=== PATIENT | female | born 1965 | race African-American/Black ===

== ENCOUNTER 2024-06-24 13:36 | Outpatient (AMB) | payer OTHER, SELFPAY ==
--- NOTE | 2024-06-24 13:41 | MHC.OFFVIS ---
Vital Signs 06/24/24 13:53 Height 5 ft Weight 217 lb 8 oz BMI 42.5 BP 122/80 Blood Pressure Location Rt brachial Position Sitting Pulse 67 Pulse Source Pulse Oximeter Pulse Oximetry (%) 97 Oxygen Delivery Method Room Air Intake Visit Reasons: migraine, pseudotumor cerebri Intake Note: Patient presents for a new patient evaluation for migraine headaches and pseudotumor cerebri Furniture Technician Required: No Accompanied by: Self / Same As Patient Allergies Penicillins Allergy (Intermediate, Verified 06/24/24 13:45) Hives Medication List - Last Reconciled 06/24/24 by LUCY Leiva acetaminophen 1,000 mg PO TID acetazolamide ER 2,000 mg PO BID acyclovir 400 mg PO BID PRN albuterol sulfate 90 mcg/actuation (Ventolin HFA) inhalation albuterol sulfate mg inhalation TID aluminum hydrox-magnesium carb 95-358 mg/15 mL (Acid Gone Antacid) mL PO PRN aspirin 81 mg PO DAILY [id number]-[id number]-wwgp 50-325-40 mg tabs PO celecoxib 100 mg PO BID cholecalciferol (vitamin D3) (Vitamin D3) 50 mcg PO DAILY clonidine HCl 0.3 mg PO DAILY clotrimazole-betamethasone 1-0.05 % appl topical DAILY furosemide 40 mg PO DAILY gabapentin mg PO BID hydrochlorothiazide 12.5 mg PO DAILY hydroxyzine HCl 50 mg PO BEDTIME PRN isosorbide mononitrate ER 30 mg PO DAILY lisinopril 40 mg PO DAILY magnesium oxide 250 mg PO DAILY mometasone 100 mcg/actuation 2 puffs inhalation BID morphine 15 mg PO BID PRN multivitamin 1 tab PO DAILY ondansetron HCl 4 mg PO Q8H PRN pantoprazole 40 mg PO BID potassium chloride ER (Klor-Con M) mEq PO TID simvastatin 10 mg PO BEDTIME tizanidine 4 mg PO BID topiramate 200 mg PO BID tramadol 50 mg PO TID PRN vitamin A 1 cap PO DAILY HPI Comments Details: Right-handed 58-yr-old female presents for new pt evaluation of headache disorder for transfer of care. Pt reports she has had severe headaches as a teenager/young adult. She was eventually evaluated by Dr Conner and was dx'd w/ IIH and migraine. Had LP x's 2- does not recall what OP was. Her weight was above 300lbs at time of Dx. She does not recall when her last brain imaging was- states was done for ? of pituitary cyst d/t h/o galactorhea.. Her last eye exam was within the year- exam WNL- at [facility]. She was previously f/b Dr Conner at [facility]- transferred as he was in [place], and then Dr Ca- transferred upon his fdc. PMH and ROS are notable for:? General: occasionally sees floaters Musculoskeletal disorders or injury: arthritis, neck, and back pain. States a cyst was recently found in lumbar spine MRI (at [facility]) by physiatry- [facility].- awaiting tx for this. Mood d/o: Depression- mood is now stable. No current therapist. Respiratory d/o: Asthma CV disease: HTN, HLD- on statin GI d/o: GERD, more prone to loose stools. P[employer]DER: post-hysterectomy. galactorhea- ? pituitary cyst. Family history of migraine or other headache disorder: maybe her sister Pertinent denials include: History of concussion/head injury, Clotting or hematology d/o, Endocrine d/o, metabolic d/o, History of seizure, syncope, or drop attacks Lifestyle considerations: Sleep routine: Usual bedtime: 2am and wake-up time: 4am and then goes back to sleep Sleep difficulties: Endorses: ARPITA- dx'd prior to gastric bypass in 2002 sx, then gained wt- but is agn losing wt follwoing a surgical intervention,Snoring, Excessive daytime sleepiness, Fatigue, Bruxism- does not use a mouthguard- s a dentists next week. Caffeine use: 1 cup of coffee per day occasionally. Substance use: none Exercise:?she is working on it, trying to walk more Employment:?On disability. Headache questionnaire:? Typical headache characteristics: Prodrome symptoms: unknown Aura: sees lights during the headache. Pain intensity: severe Location, quality, characteristics: Varies, can be throbbing/pressure/stabbing pain in the back of head or can be one sided or bilateral, or retro-orbital. More recently stabbing pain above right eye. Associated symptoms: yawning, mild photophobia, phonophobia, mild nolan whooshing tinnitus- better now, osmophobia, allodynia, nausea, sometimes lightheadedness, fatigue, mild cognitive difficulties, activity intolerance if severe. Postdrome: none Triggers: certain smells, sounds. Denies positional headache. Time of day: No specific time of day Duration and Frequency: How does headache impact your life? Varies- can be 4 headache per week, lasting hours- up to 6-7 hours. Current acute medication use/interventions: Fioricet- per pharmacy receives 100 tabs q 25 days. Current preventative medication use: Diamox ER 2000mg bid and Topiramate 200mg bid Non-pharmacological interventions: rest if needed. [facility] Medical History (Updated 06/24/24 @ 21:51 by LUCY Leiva) HTN (hypertension), benign Gastroesophageal reflux disease without esophagitis Migraine Pseudotumor cerebri Hypokalemia Major depression in remission Fibromyalgia History of substance abuse ARPITA (obstructive sleep apnea) Vitamin D deficiency Asthma Pituitary microadenoma with hyperprolactinemia Galactorrhea in female Right shoulder tendinitis Bilateral primary osteoarthritis of knee HSV (herpes simplex virus) anogenital infection Hiatal hernia with gastroesophageal reflux Class 3 severe obesity with body mass index (BMI) of 50.0 to 59.9 in adult Insomnia Chronic midline low back pain without sciatica Renal cyst Venous insufficiency Surgical History H/O endoscopy H/O section Hx laparoscopic cholecystectomy History of hysterectomy H/O hernia repair H/O colonoscopy History of carpal tunnel release Gastric bypass status for obesity History of bariatric surgery Family History Father Diabetes Hypertension CAD (coronary artery disease) Mother Hypertension Diabetes Sister Hypertension Social History (Updated 06/24/24 @ 13:53 by Renea Stanton MA) Alcohol intake: never Patient Tobacco Use Status: Never used Tobacco Review of Systems ENT Reports Normal hearing present Neuro Reports Normal hearing present Physical Exam Vital Signs: Last Vital Signs Pulse 67 06/24/24 13:53 BP 122/80 06/24/24 13:53 Pulse Ox 97 06/24/24 13:53 Oxygen Delivery Method Room Air 06/24/24 13:53 BMI result Body Mass Index 42.5 Const Orientation/consciousness: patient oriented x3 Eyes Pupils: Equal, round and reactive pupils present Resp Effort & Inspection: normal respiratory effort and able to speak in complete sentences Neuro Other: No palpable scalp tenderness. EOM overall intact w/o nystagmus- left eye deviates laterally on convergence Mild facial asymmetry, right cheek and cheek puff larger than left Mallampati grade IV Bilateral posterior cervical tightness. Cervical ROM: slightly limited Left Spurling: normal Right Spurling: normal. Poor tandem walk. BUE MS 5/5 BLE MS 5-/5 General: patient oriented x3 Cranial nerves: Yes Equal, round and reactive pupils present, Yes Nystagmus not present, Yes Midline tongue present, Yes Symmetric palate elevation present, Yes Normal hearing present, Yes Ability to bilaterally rotate head present and Yes Ability to bilaterally elevate shoulders present Cognition (Neuro): normal cognition Gait exam (Neuro): Normal gait present Deep tendon reflexes (DTR's): Right triceps reflex intensity grade: 2+, Left triceps reflex intensity grade: 2+, Rt Biceps (C5, C6): 2+, Left biceps reflex intensity grade: 2+, Right brachioradialis reflex intensity grade: 2+, Left brachioradialis reflex intensity grade: 2+, Right patellar reflex intensity grade: 2+ and Left patellar reflex intensity grade: 2+ Coordination: [id number] test normal and Romberg test negative Pupils: Normal pupillary reactivity/response: bilateral Psych Appearance: grossly normal Mental Status: mental status grossly normal Speech and movement: Normal speech and movement present Affect: normal affect Attitude: cooperative Thought process: Normal thought process present Results Reviewed Results Reviewed: Exam Date:?05/27/2024 PROCEDURE: MR SPINE LUMBAR without CONTRAST INDICATION: Vertebrogenic low back pain. Patient presents with low back pain with left leg pain, weakness and numbness/tingling. TECHNIQUE: Unenhanced multiplanar, multisequence MR imaging of the lumbar spine. COMPARISON: None Available. FINDINGS: Normal alignment of lumbar vertebral bodies. The vertebral bodies are of normal height. Mixed fatty marrow signal intensity. Intervertebral disc spaces are maintained. Lumbar facet arthrosis. Question periaortic adenopathy. Conus and cauda equina of normal appearance. Conus tip L1-L2. Examination through the L1-L2 intervertebral level revealing facet arthrosis. No significant central stenosis or foraminal narrowing. Examination through the L2-L3 intervertebral level revealing facet arthrosis. Prominence ligamenta flavum. No significant central stenosis. No significant foraminal narrowing. Examination through the L3-L4 intervertebral level revealing facet arthrosis. Prominence ligamenta flavum. No significant central stenosis. Mild LEFT foraminal narrowing. No significant RIGHT foraminal narrowing. Examination through the L4-L5 intervertebral level revealing facet arthrosis. Prominence of ligamentum flavum. No significant central stenosis. 7 mm synovial cyst along the anterior medial aspect of the LEFT L4-L5 facet encroaching on the LEFT lateral recess and contributing to a mild to moderate LEFT foraminal narrowing. There is mild to moderate RIGHT foraminal narrowing. Examination through the L5-S1 intervertebral level without central stenosis. Mild to moderate bilateral foraminal narrowing. IMPRESSION: Lumbar spondylotic changes and facet arthrosis. No findings of fracture or listhesis. No findings of acute disc protrusion. Varying degrees of relative chronic appearing central stenosis and foraminal narrowing as detailed above. Particular note made of a 7 mm synovial cyst located along the anterior medial aspect of the LEFT L4-L5 facet encroaching on the LEFT lateral recess and contributing to a mild to moderate LEFT foraminal narrowing at this level. No priors are available for comparison. Question retroperitoneal adenopathy. No priors are available for comparison. Consider CT examination of the abdomen and pelvis. Osei Middleton MD Signed by Osei Middleton MD Assessment & Plan Assessment & Plan (1) Migraine with aura: Code(s): G43.109 - Migraine with aura, not intractable, without status migrainosus Category: Medical (2) Pseudotumor cerebri: Code(s): G93.2 - Benign intracranial hypertension Category: Medical (3) Pituitary microadenoma with hyperprolactinemia: Code(s): D35.2 - Benign neoplasm of pituitary gland; E22.9 - Hyperfunction of pituitary gland, unspecified Category: Medical (4) ARPITA (obstructive sleep apnea): Code(s): G47.33 - Obstructive sleep apnea (adult) (pediatric) Category: Medical (5) Sleep difficulties: Code(s): G47.9 - Sleep disorder, unspecified Category: Medical (6) Excessive daytime sleepiness: Code(s): G47.19 - Other hypersomnia Category: Medical (7) Snoring: Code(s): R06.83 - Snoring Category: Medical Plan Pt is currently on high dose of acetazolamide and topiramate d/t remote dx of pseudotumor cerebri. Pt has had a significant wt loss, which is the primary tx modality for pseudotumor cerebri. Pt advsied to undergo work-up to determine if there is still evidence of pseudotumor cerebri or ? pituitary cyst. Will request most recent eye exam results from [facility]. Pt advised to undergo: Brain MRI w/wo- to assess for signs of intracranial hypertension, pituitary cyst, also etiologies for facial assymetry. In-lab PSG to assess for sleep apnea. Last sleep study was yrs ago and pt has lost > 100lbs since then. LP for OP- pt declines at this time, as previous LP was a traumatic tap. Routine eye exam as scheduled- will request recent reports. F/u w/ physiatry as scheduled for L4-5 synovial cyst, Lumbar spondylotic changes and facet arthrosis. For overall headache management: Optimize good self-care, including but not limited to maintaining a healthy diet, adequate fluid intake, adequate sleep, and engaging in regular physical activity. Track headaches, especially after any treatment regimen changes. SnoopWall is one of many headache tracking apps. For acute headache treatment: Discussed importance of taking acute medications at the first sign of headache, however stressed importance of avoiding acute medication overuse (especially with combined headache medications). Fioircet 2 tabs- 2 tabs bid prn. Discussed that after above work-up we should consider migraine specific acute migarine tx. Tylenol. Ondansetron- prn Nausea. Previous acute migraine medication trials: Unsure. Acute migraine medication contraindications: Would need to wean off fioricet to consider trial of gepant tx. For headache prevention medication: Topiramate 200mg bid Acetazolamide ER 2000mg bid. Previous migraine prevention medication trials: Amitriptyline- caused mood changes. Migraine prevention medication contraindications: Beta-blockers d/t asthma dx. Pt seen in collaboration w/ Dr Velma Carvajal. Will follow-up upon review of above and patient to follow-up in clinic in 3-4 months or sooner prn. Orders: Orders MR head/brain wo/w con Today D35.2 - Benign neoplasm of pituitary gland, E22.9 - Hyperfunction of pituitary gland, unspecified, G93.2 - Benign intracranial hypertension RT PSG in-lab sleep study Today G47.19 - Other hypersomnia, G47.33 - Obstructive sleep apnea (adult) (pediatric), G47.9 - Sleep disorder, unspecified, R06.83 - Snoring Medications: New acetazolamide ER 2,000 mg (4 x 500 mg) PO BID 240 caps 2RF 30 days G93.2 - Benign intracranial hypertension topiramate 200 mg PO BID 60 tabs 3RF 30 days Coding Level of Care Code New Pt Level 4 (48252) Diagnoses Migraine with aura G43.109 Pseudotumor cerebri G93.2 Pituitary microadenoma with hyperprolactinemia D35.2; E22.9 ARPITA (obstructive sleep apnea) G47.33 Sleep difficulties G47.9 Excessive daytime sleepiness G47.19 Snoring R06.83 [place] Sleepiness Scale Questions Sitting and reading: moderate chance of dozing Watching TV: moderate chance of dozing Sitting inactive in a theater, movie etc.: moderate chance of dozing As a passenger in a car for an hour without break: would never doze Lying down in the afternoon when circumstances permit: moderate chance of dozing Sitting and talking to someone: would never doze Sitting quietly after lunch without alcohol: moderate chance of dozing In a car, while stopped for a few minutes in the traffic: would never doze ESS < 10: normal, ESS > 12: pathologic: 10
[2024-06-24 13:53] VITALS: BP 122/80; PULSE 67; O2SAT 97; BMI 42.5
== END 2024-06-24 15:07 | disposition home or self-care (01) ==
PROVIDERS: PCP Internal Medicine; Referring Provider Family Medicine; Visit Provider Nurse Practitioner Family
DX: G43.109 Migraine with aura, not intractable, without status migrainosus (principal); G93.2 Benign intracranial hypertension; D35.2 Benign neoplasm of pituitary gland; E22.9 Hyperfunction of pituitary gland, unspecified; G47.33 Obstructive sleep apnea (adult) (pediatric); G47.9 Sleep disorder, unspecified; G47.19 Other hypersomnia; R06.83 Snoring
CPT/HCPCS: 99204

== ENCOUNTER → 2024-06-24 13:36 | Outpatient (BNVA) | payer OTHER, SELFPAY | PROVIDERS: PCP Internal Medicine; Referring Provider Family Medicine; Visit Provider Nurse Practitioner Family | DX: G43.109 Migraine with aura, not intractable, without status migrainosus (principal); G93.2 Benign intracranial hypertension; G47.33 Obstructive sleep apnea (adult) (pediatric); G47.19 Other hypersomnia; D35.2 Benign neoplasm of pituitary gland; E22.9 Hyperfunction of pituitary gland, unspecified; R06.83 Snoring | CPT/HCPCS: 99202 ==

== ENCOUNTER 2025-05-07 12:51 | Outpatient (REF) | payer OTHER, SELFPAY ==
[2025-05-07 18:26] LABS: MANUAL DIFF FLAG NO
[2025-05-07 18:31] LABS: Hematocrit 33.5 % (37.0-47.0); Hemoglobin 9.9 g/dl (12.0-16.0); Imm Gran Abs Auto 0.01 X10*3/uL (0.00-0.03); Imm Gran Pct Auto 0.2 % (0.0-0.4); Lymphocytes Absolute Auto 0.9 X10*3/uL (1.2-4.9); Mean Corpuscular HGB Conc 29.6 g/dl (31.0-35.0); Mean Corpuscular Hemoglobin 26.1 pg (27.0-33.0); Mean Corpuscular Volume 88.4 fL (80.0-98.0); NRBC Pct Auto 0.0 /100WBC (0.0-0.2); Platelet Count 203 X10*3/uL (160-400); Red Blood Count 3.79 X10*6/uL (4.20-5.50); White Blood Count 6.6 X10*3/uL (4.8-10.8)
[2025-05-07 18:32] LABS: NRBC Abs Auto 0.000 X10*3/uL (0.0-0.012)
[2025-05-07 19:05] LABS: Alanine Aminotransferase 32 U/L (0-31); Albumin Level 2.9 g/dL (3.5-5.0); Alkaline Phosphatase 126 U/L (39-117); Anion Gap 8 (12-20); Aspartate Amino Transferase 33 U/L (5-31); Blood Urea Nitrogen 19 mg/dL (9-16); Calcium 8.0 mg/dL (8.4-10.2); Carbon Dioxide 21 mmol/L (22-29); Chloride 116 mmol/L (96-108); Estimated Glomerular Filt Rate > 60; Potassium 3.6 mmol/L (3.3-5.1); Sodium 141 mmol/L (135-145); Total Protein 6.0 g/dL (6.5-8.0)
[2025-05-07 19:21] LABS: Folate 14.3 ng/mL (> or = 4.0); Vitamin B12 577 pg/mL (200-900)
== END 2025-05-07 12:52 | disposition home or self-care (01) ==
LOC: HO.HKASLDS 12:51
PROVIDERS: PCP Internal Medicine; Visit Provider Psychiatry & Neurology Neurology
DX: G25.2 Other specified forms of tremor (principal); Z79.899 Other long term (current) drug therapy
CPT/HCPCS: 36415; 80053; 82607; 82746; 84443; 85025; 85652; 99202

== ENCOUNTER 2025-05-07 12:51 | Outpatient (AMB) | payer OTHER, SELFPAY ==
[2025-05-07 12:53] VITALS: BP 110/78; PULSE 78; O2SAT 98; BMI 35.8
--- NOTE | 2025-05-07 12:53 | MHC.OFFVIS ---
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: No Accompanied by: Self / Same As Patient Allergies Penicillins Allergy (Intermediate, Verified 05/07/25 12:53) Hives Medication List - Last Reconciled 05/07/25 by Velma Carvajal MD acetaminophen 1,000 mg PO TID acetazolamide ER 2,000 mg (4 x 500 mg) PO BID 30 days albuterol sulfate 90 mcg/actuation (Ventolin HFA) inhalation albuterol sulfate mg inhalation TID aluminum hydrox-magnesium carb 95-358 mg/15 mL (Acid Gone Antacid) mL PO PRN baclofen 10 mg PO BEDTIME nlnchqiigk-sublaqilltjnh-egya 50-325-40 mg 2 tabs PO BID 30 days cholecalciferol (vitamin D3) (Vitamin D3) 50 mcg PO DAILY clotrimazole-betamethasone 1-0.05 % appl topical DAILY gabapentin mg PO BID hydroxyzine HCl 50 mg PO BEDTIME PRN magnesium oxide 250 mg PO DAILY morphine 15 mg PO BID PRN multivitamin 1 tab PO DAILY pantoprazole 40 mg PO BID potassium chloride ER (Klor-Con M) mEq PO TID simvastatin 10 mg PO BEDTIME topiramate 200 mg PO BID 30 days torsemide 20 mg PO DAILY tramadol 50 mg PO TID PRN vitamin A 1 cap PO DAILY HPI Comments Details: 59y/o Right handed female comes for evaluation of tremors.she started noticing on and off tremors in her UE about 1 year ago.The tremors are more with action and posture. she has trouble texting, holding a cup of coffee- spilled her tea, difficulty holding utensils, she frequently drops thinks. she has neck pain and back but denies any radiating pain to the UE. she denies any sensory changes in her hands. She denies any fh/o tremors. See notes from 05/2024 - she was seen by Bethany Olvera for headaches but did not mention tremors. [facility] Medical History (Updated 05/07/25 @ 13:24 by Velma Carvajal MD) Coarse tremors HTN (hypertension), benign Gastroesophageal reflux disease without esophagitis Migraine Pseudotumor cerebri Hypokalemia Major depression in remission Fibromyalgia History of substance abuse ARPITA (obstructive sleep apnea) Vitamin D deficiency Asthma Pituitary microadenoma with hyperprolactinemia Galactorrhea in female Right shoulder tendinitis Bilateral primary osteoarthritis of knee HSV (herpes simplex virus) anogenital infection Hiatal hernia with gastroesophageal reflux Class 3 severe obesity with body mass index (BMI) of 50.0 to 59.9 in adult Insomnia Chronic midline low back pain without sciatica Renal cyst Venous insufficiency Surgical History H/O endoscopy H/O section Hx laparoscopic cholecystectomy History of hysterectomy H/O hernia repair H/O colonoscopy History of carpal tunnel release Gastric bypass status for obesity History of bariatric surgery Family History Father Diabetes Hypertension CAD (coronary artery disease) Mother Hypertension Diabetes Sister Hypertension Social History Alcohol intake: never Patient Tobacco Use Status: Never used Tobacco Physical Exam Vital Signs: Last Vital Signs Pulse 78 05/07/25 12:53 BP 110/78 05/07/25 12:53 Pulse Ox 98 05/07/25 12:53 Oxygen Delivery Method Room Air 05/07/25 12:53 BMI result Body Mass Index 35.8 Const Orientation/consciousness: patient oriented x3 Eyes Pupils: Equal, round and reactive pupils present Neuro Other: postural and action tremors with some irregular quality - like mini myoclonus , wing beating tremors General: patient oriented x3, tone normal, moves all extremities and no focal motor deficits Cranial nerves: Yes Facial sensation intact/muscles of mastication intact, Yes Equal, round and reactive pupils present, Yes Bilaterally intact EOM present, Yes Nystagmus not present, Yes Normal facial strength present, Yes Midline tongue present and Yes Ability to bilaterally elevate shoulders present Cognition (Neuro): normal cognition Gait exam (Neuro): Antalgic gait present and Assistive device used Deep tendon reflexes (DTR's): Right triceps reflex intensity grade: 1+, Left triceps reflex intensity grade: 1+, Rt Biceps (C5, C6): 1+, Left biceps reflex intensity grade: 1+, Right brachioradialis reflex intensity grade: 1+, Left brachioradialis reflex intensity grade: 1+, Right patellar reflex intensity grade: 1+ and Left patellar reflex intensity grade: 1+ Coordination: [id number]-[id number] test normal (tremors nolan) Assessment & Plan Assessment & Plan (1) Coarse tremors: Comment: ? exaggerated physiological , ? myoclonus Code(s): G25.2 - Other specified forms of tremor Category: Medical Plan review records form [facility] Due to limitation of time I was unable to evaluate her headaches I will Schedule f/u with Bethany Olvera for headaches and possible Pseudotumour. she was seen on05/2024 for headaches Her gabapentin was increased to 400mg bid last week by PCP which could help her tremors CBC CMP TSH ESR B 12 Needs an visual eval- waiting for appointment Orders: Orders TSH reflex Free T4 Today G25.2 - Other specified forms of tremor Vitamin B12 and Folate Today G25.2 - Other specified forms of tremor Complete Blood Count Auto Diff Today G25.2 - Other specified forms of tremor Comprehensive Met. Panel Today G25.2 - Other specified forms of tremor Erythrocyte Sedimentation Rate Today G25.2 - Other specified forms of tremor Coding Level of Care Code New Pt New Pt Level 4 (55474) Patient Type New History Expanded Problem Focused Exam Detailed Medical Decision Making Moderate Complexity Diagnoses Coarse tremors G25.2
== END 2025-05-07 13:33 | disposition home or self-care (01) ==
LOC: HO.HSMS 12:52
PROVIDERS: PCP Internal Medicine; Visit Provider Psychiatry & Neurology Neurology
DX: G25.2 Other specified forms of tremor (principal)
CPT/HCPCS: 99204

== ENCOUNTER 2025-05-30 12:48 | Outpatient (AMB) | payer OTHER, SELFPAY ==
--- OUTSIDE RECORDS SUMMARY | 2025-05-21 13:30 | XMS_ITS | Encounter Summary ---
Author Organization [facility] Address [address] [place] [address] Care Team Providers Care Telephone Messenger Name Role Phone Chuck Casillas MD Primary Care Pr ovider Reason for Referral * Consultation (Routine) - Pending Review Specialty Diagnoses / Procedures Referred By Lynette anne Referred To Contact Allergy Diagnoses Facial edema Isma Chris PA [address] [place] [address] Phone: tel: fax: [facility] [address] [place] [address] Phone: tel: fax: Referral ID Status Reason Start Date Expiration Date Visits Requested Visits Authorized [id number] Pending Review Specialty Services Required 05/21/2026 1 1 Reason for Visit * Reason Comments Facial Swelling Encounter Details Date Type Department Care Team ([facility] st Contact Info) Description 05/21/2025 1:30 PM EDT Office Visit Adult Medicine [address] [phone] Isma Chris PA [address] [place] [address] Facial edema (Primary Dx); Chronic midline low back pain without sciatica; Mild intermittent asthma without complication; Obstructive sleep apnea syndrome; Tremors of nervous system; Obesity, Class II, BMI 35-39.9 Social History Tobacco Use Types Packs/Day Years Used Date Smoking Tobacco: Never Smokeless Tobacco: Never Tobacco Cessation:Counseling Given: Not Answered Alcohol Use Standard Drinks/Week Comments No 0 (1 standard drink = 0.6 oz pur e alcohol) Housing Instability Answer Date Recorde d Are you worried that in the next 2 months you may not have stable housing? Patient declined 12/26/2024 Food Access & Nutrition Answer Date Rec orded Do you have access to a vari ety of food including fruits and vegetables? Patient declined 12/26/2024 Health Literacy Answer Date Recorded How often do you need to hav e someone help you when you read instructions, pamphlets, or other written material from your doctor or pharmacy? Patient declined 12/26/2024 Caregiver: How often do you need to have someone help you when you read instructions, pamphlets, or other written material from your doctor or pharmacy? Not on file 025 Financial Risk Answer Date Recorded How hard is it for you to pa y for the very basics like food, housing, medical care, and air conditioning / heating? Patient declined 12/26/2024 Transportation Answer Date Recorded Has the lack of transportati on kept you from meetings, work, or from getting things needed for daily living? Patient declined 12/26/2024 Has the lack of transportati on kept you from medical appointments or from getting medications? Patient declined 12/26/2024 Social Isolation Answer Date Recorded How often do you feel lonely or isolated from those around you? Patient declined 12/26/2024 Food Risk Answer Date Recorded Within the past 12 months we worried whether our food would run out before we got money to buy more. Not asked 02/24/2025 Within the past 12 months th e food we bought just didn't last and we didn't have money to get more. Not asked 02/24/2025 Dependent Care Answer Date Recorded Do you need help finding or paying for care for your loved ones. For example, children's service worker or elderly care for an older adult? Patient declined 12/26/2024 Education Answer Date Recorded Do you think completing more education or training, like finishing a GED, going to college, or learning a trade, would be helpful for you? Patient declined 12/26/2024 Employment and Income Answer Date Recor ded During the last four weeks, have you been actively looking for work? Patient declined 12/26/2024 Living Situation Answer Date Recorded What is your living situation? Unrecognized valu e 12/26/2024 Interpersonal Safety Answer Date Record ed Physical Abuse Unrecognized value 02/22/2025 Verbal Abuse Unrecognized value 02/22/2025 Comments No Sex and Gender Information Value Date Recorded Sex Assigned at Female 10/22/2024 12:49 PM EDT Legal Sex Female 8:12 AM EST Gender Identity Female 10/22/2024 12:49 PM EDT Sexual Orientation Straight 10/22/2024 12 :49 PM EDT documented as of this encounter Last Filed Vital Signs Vital Sign Reading Time Taken Comments Blood Pressure 123/80 05/21/2025 1:17 PM EDT Pulse 68 05/21/2025 1:17 PM EDT Temperature 36.9 C (98.4 F) 05/21/2025 1:17 PM EDT Respiratory Rate 14 05/21/2025 1:17 PM EDT Oxygen Saturation - - Inhaled Oxygen Concentration - - Weight 81.6 kg (180 lb) 05/21/2025 1:17 PM EDT Height 152.4 cm (5') 05/21/2025 1:17 PM EDT Body Mass Index 35.15 05/21/2025 1:17 PM EDT documented in this encounter Functional Status * Are you deaf or do you have serious difficulty hearing? Answer Date of Assessment Author No 08/13/2024 7:57 AM EST Dolkim, Tracie Mcintyre RN * Are you blind or do you have serious difficulty seeing, even when wearing glasses? Answer Date of Assessment Author No 08/13/2024 7:57 AM EST Tracie Demarco RN * Do you have serious difficulty walking or climbing stairs? Answer Date of Assessment Author No 08/13/2024 7:57 AM EST Dav, Tracie Mcintyre RN * Do you have serious difficulty dressing or bathing? Answer Date of Assessment Author No 08/13/2024 7:57 AM EST Dav, Tracie Mcintyre RN * Because of a physical, mental, or emotional condition, do you have serious difficulty doing errandsalone such as visiting the doctor? Answer Date of Assessment Author No 08/13/2024 7:57 AM Tracie Diego RN documented as of this encounter Mental Status * Because of a physical, mental, or emotional condition, do you have serious difficulty concentrating, remembering, or making decisions? (5 years old or older) Answer Entry Date Author No 08/13/2024 7:57 AM Tracie Diego RN documented in this encounter Ordered Prescriptions Prescription Sig Dispense Quantity Refills Last Filled Start Date End Date ciclopirox (PENLAC) 8 % solution Apply topically at bedtime. Apply over nail and surrounding skin. Apply daily over previous coat. After seven (7) days, may remove with alcohol and continue cycle. 6.6 mL 05/23/2025 6 documented in this encounter Progress Notes * MIKE Jones - 05/21/2025 1:30 PM EDT Try an over the counter allergy medication for swelling symptoms (eye, lips, face) like Claritin orZyrtec or Benadryl to see if this helps symptoms * MIKE Jones - 05/21/2025 1:30 PM EDTAddended by: ISMA CHRIS on: 05/23/2025 11:20 AM Modules accepted: Orders * MIKE Jones - 05/21/2025 1:30 PM EDT CHIEF COMPLAINT: Facial Swelling IDENTIFIER: Odette Gorman is a 59 y.o. old female. HPI: 59 year old female presents to office for evaluation of facial swelling for the past few months. She states she has noticed swelling of her bilateral eyes and lips when waking in the morning. She states symptoms tend to resolve as day goes on. She denies new medications. She states symptoms were occurring prior to her recent gabapentin dose increase (seen 04/30). She denies itching of eyes, waterin g of eyes, crusting or discharge. She denies tongue swelling, throat closing sensation, wheezing, dyspnea. She states she has noticed episodic swelling of her hands. She denies new products, foods, clothing, soaps Patient states she is going to be seeing Physiatry for her back to have injection done. States the procedure was supposed to be in November. She states when she was here last time she pulled on the door when leaving and her back went into spasm Patient has a few forms with her today she is inquiring about One is for [employer] (due to use of CPAP machine for ARPITA and nebulizer machine for asthma). We have completed this form in the past. Form was not dated so needs to be completed again She also had [employer] form that was completed by PCP in March that she states needs to be reviewed. She states one area was checked as temporary but then stated it was a chronic/life-long condition and she was told the form needed to be elaborated on in certain parts Patient continues to have hand tremor. Was referred to Neurology. She has been having increased headaches and trouble with memory. She states she has appointment end of this month with Neurology Patient has not taken Zepbound in months. She is followed by weight management. She states she has noticed return of appetite. She states Zepbound 2.5mg weekly was denied by insurance ROS: GENERAL: No malaise or fever HEENT: No changes in hearing or vision RESPIRATORY: No cough, wheezing or shortness of breath CARDIOVASCULAR: No chest pain GI: No abdominal pain, diarrhea, constipation MUSCULOSKELETAL: No joint pain NEURO: No persistent headache, syncope, numbness All other systems reviewed and negative. PAST MEDICAL HISTORY: Patient Active Problem List Diagnosis Date Noted Hypocalcemia 04/11/2025 Neuropathy 03/14/2025 Hypoalbuminemia 02/24/2025 E. coli gastroenteritis 02/24/2025 Swelling of both lower extremities 02/22/2025 Tremors of nervous system 02/10/2025 Normocytic anemia 02/08/2025 Chronic pain syndrome 01/06/2025 Acute deep vein thrombosis (DVT) of calf muscle vein of both lower extremities ([facility] V24, [facility] V28) 01/06/2025 Acute pulmonary embolism ([facility] V24, [facility] V28) 12/26/2024 Arthritis 06/19/2024 Carpal tunnel syndrome 06/19/2024 Depression 06/19/2024 Myofascial pain 06/19/2024 Obstructive sleep apnea syndrome 06/19/2024 Obesity, Class II, BMI 35-39.9 06/19/2024 HSV (herpes simplex virus) anogenital infection 05/07/2024 HLD (hyperlipidemia) 05/07/2024 Osteoarthritis of right ankle and foot 05/07/2024 Coronary artery disease 01/15/2024 Osteoarthritis of lumbar spine 09/01/2023 Dyspnea on exertion 06/07/2023 Constipation 04/24/2023 Venous insufficiency 04/13/2023 Calcific Achilles tendinitis 04/13/2023 Renal cyst 03/20/2023 Insomnia 09/19/2022 Chronic midline low back pain without sciatica 09/19/2022 Hiatal hernia with gastroesophageal reflux 06/22/2020 Right shoulder tendinitis 02/26/2018 Bilateral primary osteoarthritis of knee 02/26/2018 Pituitary microadenoma with hyperprolactinemia ([facility] V24, [facility] V28) 12/22/2015 Galactorrhea in female 12/22/2015 Asthma 01/14/2014 Vitamin D deficiency 05/16/2012 History of substance abuse ([facility] V24, [facility] V28) 02/25/2008 Pseudotumor cerebri 12/26/2007 Migraine 12/26/2007 Hypokalemia 12/26/2007 HTN (hypertension), benign 12/26/2007 GERD (gastroesophageal reflux disease) 12/26/2007 Fibromyalgia 12/26/2007 ACTIVE MEDICATIONS: Current Outpatient Medications Medication Instructions acetaminophen (TYLENOL 8 HOUR) 650 mg, oral, 2 times daily PRN, Do not crush, chew, or split. acetaZOLAMIDE (DIAMOX) 500 mg 12 hr capsule TAKE 4 CAPSULES BY MOUTH TWICE A DAY albuterol HFA (PROAIR HFA ; PROVENTIL HFA ; VENTOLIN HFA) 90 mcg/actuation inhaler Inhale 2 Puffs into the lungs every 6 hours as needed for Cough or Wheezing. albuterol 2.5 mg, nebulization, Every 4 hours PRN aluminum-magnesium hydroxide-simethicone (MAALOX) 200-200-20 mg/5 mL suspension Take 15 mL by mouth3 times daily as needed (heartburn). apixaban (ELIQUIS) 5 mg, oral, 2 times daily baclofen (LIORESAL) 10 mg, oral, 2 times daily PRN blood pressure test kit-large kit BLOOD PRESSURE MONITORING (B-D ASSURE BPM/AUTO ARM CUFF) MISC: 1 Units by Does not apply route daily. - Does not apply calcium citrate-vitamin D3 250 mg-5 mcg (200 unit) tablet 1 tablet, oral, Daily CANE MISC MISC. DEVICES (CANE/T-HANDLE) MISC: 1 Units by Does not apply route daily. - Does not apply diclofenac sodium 3 % gel Apply 4 g topically 3 times daily as needed (knee pain). dicyclomine (BENTYL) 10 mg, oral, 4 times daily PRN famotidine (PEPCID) 40 mg, oral, 2 times daily fluticasone propionate (FLONASE) 50 mcg/actuation nasal spray INSTILL 2 SPRAYS IN EACH NOSTRIL ONCETO TWICE DAILY gabapentin (NEURONTIN) 400 mg, oral, 2 times daily hydrOXYzine HCL (ATARAX) 25 mg, oral, Nightly magnesium oxide 420 mg tablet 1 tablet, oral, Daily metoprolol succinate (TOPROL-XL) 25 mg, oral, Daily mirtazapine (REMERON) 7.5 mg, oral, Nightly, at bedtime. morphine (MS CONTIN) 15 mg, oral, 2 times daily, Do not crush, chew, or split. multivitamin tablet 1 tablet, oral, Daily, Multiple Vitamin (multivitamin) capsule: Take 1 Capsule by mouth daily for 360 days. - Oral pantoprazole (PROTONIX) 40 mg EC tablet TAKE 1 TABLET BY MOUTH 2 TIMES DAILY FOR 90 DAYS. potassium chloride (KLOR-CON M20) 20 mEq CR tablet 40 mEq, oral, Daily, Tablet may be swallowed whole (do not crush/chew/suck on) OR broken in half and each half swallowed separately OR dissolved (whole tablet) in ~4 ounces of water (allow ~2 minutes to dissolve, stir well and administer immediately). simvastatin (ZOCOR) 10 mg, oral, Nightly sucralfate (CARAFATE) 1 g, oral, 4 times daily before meals and nightly topiramate (TOPAMAX) 200 mg, oral, Daily torsemide 40 mg, oral, Daily traMADoL (ULTRAM) 50 mg, oral, 2 times daily PRN traZODone (DESYREL) 50 mg, oral, Nightly vitamin A 10,000 Units, oral, Daily Vitamin D3 2,000 Units, oral, Daily ALLERGIES: Allergies[1] PHYSICAL EXAM: Blood pressure 123/80, pulse 68, temperature 36.9 ??C (98.4 ??F), resp. rate 14, height 1.524 m (60 ), weight 81.6 kg (180 lb). Body mass index is 35.15 kg/m??. APPEARANCE: Alert and in no acute distress EYES: Conjunctiva and sclera normal. No edema /swelling noted on exam MOUTH: No angioedema HEART: RRR with normal S1 and S2 LUNG: clear to auscultation, no wheezing, rales, or rhonchi EXTREMITIES: Extremities warm and well perfused without clubbing, cyanosis, or edema NEURO: Awake, alert and oriented x 3 LABS/IMAGING: Reviewed IMPRESSION: 1. Facial edema 2. Obstructive sleep apnea syndrome 3. Chronic midline low back pain without sciatica 4. Mild intermittent asthma without complication 5. Tremors of nervous system 6. Obesity, Class II, BMI 35-39.9 PLAN: Facial edema - patient reporting episodic eye and lip swelling, worse in morning and improving as day goes on. Also reporting episodic swelling of hands. No associated dyspnea, wheezing, throat closing sensation, rash. Raises question of allergic etiology. Discussed to trial OTC antihistamine when symptoms occur to see if this improves symptoms. Will refer to director sales training. Will check lab work Back pain - states will be seeing Physiatry for injection upcoming Asthma, ARPITA - [employer] form completed and given to patient, copy kept for our records Tremor - states has upcoming appointment with Neurology Obesity, BMI 35 - follow-up with weight management as directed Patient verbalized understanding and is in agreement with plan ADDITIONAL ORDERS: Orders Placed This Encounter Procedures Comprehensive metabolic panel CBC and differential Thyroid stimulating hormone with reflex to free t4 and free t3 Vitamin B12 B-type natriuretic peptide Ambulatory referral to Allergy AMB REFERRAL TO ALLERGY MIKE Jones on 05/22/2025 at 3:57 PM EDT Today's documentation was made using voice recognition software.This note may contain grammatical errors secondary to this software. [1] Allergies Allergen Reactions Penicillins Itching and Swelling Other Reaction(s): Hives/Urticaria Amlodipine Itching, Swelling and Disorientated * MIKE Jones - 05/21/2025 1:30 PM EDT Patient did also mention thickened appearance to thumb nail at visit, will trial topical Penlac * MIKE Jones - 05/21/2025 1:30 PM EDT Patient was reporting fatigue, which has improved in the past with drinking Ensure protein drinks. Requested DME for this documented in this encounter Plan of Treatment Upcoming Encounters Date Type Department Care Team (Late st Contact Info) Description 06/02/2025 8:00 AM EST Telemedicine Bariatric Surgery - [address] [phone] Josefina Ryan, RD [address] [phone] 06/04/2025 2:00 PM EST Office Visit Adult Medicine [address] [phone] Isma Chris PA [address] [place] [address] 06/17/2025 1:30 PM EST Office Visit Adult Medicine [address] [phone] Isma Chris PA [address] [place] [address] 06/19/2025 1:30 PM EST Ancillary Procedure [facility] [address] [place] [phone] 06/25/2025 1:20 PM EST Office Visit Gastroenterology - [address] [place] [address] Karlie Kim NP [address] [place] [phone] 07/09/2025 1:00 PM EST Consult Vascular Surgery - [place] [address] [place] [phone] Camille Mcgill PA [address] [place] [phone] 08/14/2025 2:00 PM EST Office Visit Adult Medicine [facility] [address] [place], [place] [phone] Chuck Casillas MD [address] [place] [phone] 10/10/2025 1:10 PM EDT Office Visit [facility] - [facility] [address] [facility] [address] [place] [address] Viola Gonzalez NP [address] [place] [address] [address] [place] [phone] Scheduled Referrals Name Type Priority Associated Diagnoses Order Schedule Ambulatory referral to Allergy Outpatient Referral Routine Facial edema 1 Occurrences starting 05/21/2025 until 05/21/2026 documented as of this encounter Results * (ABNORMAL) B-type natriuretic peptide (05/21/2025 2:41 PM EDT) BNP 123(H) <=100 pcg/mL LAB CHEMISTRY METHOD 05/21/2025 5:19 PM EDT [facility] Blood Venous blood specimen / Unknown Venipuncture / Unknown 05/21/2025 2:41 PM EDT 05/21/2025 2:41 PM EDT us Isma MCKEON LAB BLOOD ORDERABLES Final Re sult Performing Organization Address [facility]/ZIP Co de Phone Number [facility] [address] [place] [address], [place] [phone] * Vitamin B12 (05/21/2025 2:41 PM EDT) Vitamin B-12 765 250 - 900 pcg/mL LAB CHEMISTRY METHOD 05/21/2025 7:12 PM EDT [facility] Blood Venous blood specimen / Unknown Venipuncture / Unknown 05/21/2025 2:41 PM EDT 05/21/2025 2:41 PM EDT us Isma MCKEON LAB BLOOD ORDERABLES Final Re sult Performing Organization Address [facility]/ZIP Co de Phone Number [facility] [address] [place] [address], [place] [phone] * Thyroid stimulating hormone with reflex to free t4 and free t3 (05/21/2025 2:41 PM EDT) TSH 1.59 0.40 - 4.00 mcIU/mL LAB CHEMISTRY METHOD 05/21/2025 7:27 PM EDT [facility] Blood Venous blood specimen / Unknown Venipuncture / Unknown 05/21/2025 2:41 PM EDT 05/21/2025 2:41 PM EDT us Isma MCKEON LAB BLOOD ORDERABLES Final Re sult [facility] [address] [place] [address], [place] [phone] * (ABNORMAL) Comprehensive metabolic panel (05/21/2025 2:41 PM EDT) Sodium 141 133 - 145 mmol/L LAB CHEMISTRY METHOD 05/21/2025 7:12 PM [facility] Potassium 3.1(L) 3.5 - 5.5 mmol/L LAB CHEMISTRY METHOD 05/21/2025 7:12 PM [facility] Chloride 111(H) 96 - 110 mmol/L LAB CHEMISTRY METHOD 05/21/2025 7:12 PM [facility] CO2 24 21 - 32 mmol/L LAB CHEMISTRY METHOD 05/21/2025 7:12 PM [facility] Anion Gap 6 3 - 11 LAB CHEMISTRY METHOD 05/21/2025 7:12 PM [facility] Glucose 84 70 - 100 mg/dL LAB CHEMISTRY METHOD 05/21/2025 7:12 PM [facility] BUN 20 5 - 25 mg/dL LAB CHEMISTRY METHOD 05/21/2025 7:12 PM [facility] Creatinine 0.60 0.50 - 1.10 mg/dL LAB CHEMISTRY METHOD 05/21/2025 7:12 PM [facility] eGFR 104 >=60 mL/min/1. 73m2 LAB CHEMISTRY METHOD 05/21/2025 7:12 PM [facility] Comment:Calculation based on the Chronic Kidney Disease Epidemiology Collaboration (CKD-EPI) equation refit without adjustment for race. BUN/Creatinine Ratio 33.3 LAB CHEMISTRY METHOD 05/21/2025 7:12 PM [facility] Calcium 8.0(L) 8.5 - 10.5 mg/dL LAB CHEMISTRY METHOD 05/21/2025 7:12 PM [facility] AST (SGOT) 33 10 - 42 unit/L LAB CHEMISTRY METHOD 05/21/2025 7:12 PM [facility] ALT (SGPT) 43 10 - 60 unit/L LAB CHEMISTRY METHOD 05/21/2025 7:12 PM EDT [facility] Alkaline Phosphatase 145(H) 42 - 121 unit/L LAB CHEMISTRY METHOD 05/21/2025 7:12 PM EDT [facility] Total Protein 6.2 6.0 - 8.0 g/dL LAB CHEMISTRY METHOD 05/21/2025 7:12 PM EDT [facility] Albumin 2.7(L) 3.2 - 5.0 g/dL LAB CHEMISTRY METHOD 05/21/2025 7:12 PM EDT [facility] Total Bilirubin 0.3 0.0 - 1.4 mg/dL LAB CHEMISTRY METHOD 05/21/2025 7:12 PM EDT [facility] Blood Venous blood specimen / Unknown Venipuncture / Unknown 05/21/2025 2:41 PM EDT 05/21/2025 2:41 PM EDT us Isma MCKEON LAB BLOOD ORDERABLES Final Re sult [facility] [address] [place] [address], documented in this encounter Visit Diagnoses Diagnosis Facial edema- Primary Edema Chronic midline low back pain without sciatica Mild intermittent asthma without complication Obstructive sleep apnea syndrome Obstructive sleep apnea (adult) (pediatric) Tremors of nervous system Obesity, Class II, BMI 35-39.9 documented in this encounter Additional Health Concerns Infection Onset Date Last Indicated Resolved Time Enteropathogenic E. coli (EPEC) 02/23/2025 5 Assessment Noted Time PHQ-9 Depression Total Score: 11 025 10:06 AM EDT documented as of this encounter Care Teams Telephone Messenger Relationship Specialty Start Date End Date Chuck Casillas MD [address] [facility], [place] PCP - General Internal Medicine 02/18/22 documented as of this encounter
--- OUTSIDE RECORDS SUMMARY | 2025-05-26 15:00 | XMS_ITS | Encounter Summary ---
Author Organization [facility] Address [address] [place] [address] Care Team Providers Care Industrial Engineering Manager Name Role Phone Chuck Casillas MD Primary Care Pr ovider Reason for Visit * Imaging (Routine) - Authorized Specialty Diagnoses / Procedures Referred By Lynette anne Referred To Contact Diagnoses Venous insufficiency Leg swelling Procedures Vascular US duplex lower extremity venous insufficiency bilateral Chuck Casillas MD [address] [place] [phone] Phone: tel: fax: [facility] Referral ID Status Reason Start Date Expiration Date V isits Requested Visits Authorized [id number] Authorized 03/14/2025 03/14/2026 1 1 Encounter Details Date Type Department Care Team (Latest Contact Info) Description 05/26/2025 3:00 PM EDT Ancillary Procedure [facility] - [address] [place] [address] Venous insufficiency; Leg swelling Social History Tobacco Use Types Packs/Day Years Used Date Smoking Tobacco: Never Smokeless Tobacco: Never Alcohol Use Standard Drinks/Week Comments No 0 [...] care for your loved ones. For example, career services manager or elderly care for an older adult? [...] PM EDT documented as of this encounter Functional Status * Are you deaf or do you have serious difficulty hearing? Answer Date of Assessment Author No 08/13/2024 7:57 AM EST Doles, As carlos Mcintyre RN * Are you blind or do you have serious difficulty seeing, even when wearing glasses? Answer Date of Assessment Author No 08/13/2024 7:57 AM EST Doles, As carlos Mcintyre RN * Do you have serious difficulty walking or climbing stairs? Answer Date of Assessment Author No 08/13/2024 7:57 AM EST Doles, As carlos Mcintyre RN * Do you have serious difficulty dressing or bathing? Answer Date of Assessment Author No 08/13/2024 7:57 AM EST Doles, As carlos Mcintyre RN * Because of a physical, mental, or emotional condition, do you have serious difficulty doing errandsalone such as visiting the doctor? Answer Date of Assessment Author No 08/13/2024 7:57 AM EST Doles, As carlos Mcintyre RN documented as of this encounter Mental Status * Because of a physical, mental, or emotional condition, do you have serious difficulty concentrating, remembering, or making decisions? (5 years old or older) Answer Entry Date Author No 08/13/2024 7:57 AM EST Doles, As carlos Mcintyre RN documented in this encounter Plan of Treatment Upcoming Encounters Date Type Department Care Team (Late st Contact Info) Description 06/02/2025 8:00 AM EST Telemedicine Bariatric Surgery - [place] [address] [phone] Josefina Ryan, RD [address] [phone] 06/04/2025 2:00 PM EST Office Visit Adult Medicine [address] [phone] Rhona Chris PA [address] [place] [phone] 06/17/2025 1:30 PM EST Office Visit Adult Medicine [facility] [address] [place] [address] Rhona Chris PA [address] [place] [address] 06/19/2025 1:30 PM EST Ancillary Procedure [facility] [address] [place] [phone] 06/25/2025 1:20 PM EST Office Visit Gastroenterology - [address] [place] [address] Karlie Kim NP [address] [place] [address] 07/09/2025 1:00 PM EST Consult Vascular Surgery - [place] [address] [place] [address] Camille Mcgill PA [address] [place] [phone] 08/14/2025 2:00 PM EST Office Visit Adult [address] [phone] Chuck Casillas MD [address] [place], [place] 10/10/2025 1:10 PM EDT Office Visit [facility] [address] [place] [phone] Viola Gonzalez NP [address] [place] [phone] documented as of this encounter Procedures Procedure Name Priority Date/Time Associated Diagnosis Comments VAS US DUPLEX LOWER EXT VENOUS INSUFFICIENCY BILATERAL Routine 05/26/2025 3:46 PM EDT Venous insufficiency Leg swelling documented in this encounter Results * Vascular US duplex lower extremity venous insufficiency bilateral (05/26/2025 3:46 PM EDT) Left GSK sunni 0.26 cm CV VAS LAB Left GSDC sunni 0.21 cm CV VAS LAB Left GSMT sunni 0.31 cm CV VAS LAB Left GSPC sunni 0.19 cm CV VAS LAB Left GSPT sunni 0.39 cm CV VAS LAB Left SFJ Diameter 0.63 cm CV VAS LAB Left SSMC sunni 0.27 cm CV VAS LAB Left SSPC sunni 0.30 cm CV VAS LAB Right GSDC sunni 0.25 cm CV VAS LAB Right GSMT sunni 0.35 cm CV VAS LAB Right GSPC sunni 0.19 cm CV VAS LAB Right GSPT sunni 0.36 cm CV VAS LAB Right SFJ Diameter 0.39 cm CV VAS LAB Right SSMC sunni 0.27 cm CV VAS LAB Right SSPC sunni 0.32 cm CV VAS LAB Right GSK sunni 0.20 cm CV VAS LAB Right GSPC reflux 1,156 ms CV VAS LAB Anatomical Region Laterality Modality Vascular, Abdomen Ultrasound Narrative 05/27/2025 6:26 PM EDT RIGHT. 1. No evidence of deep vein thrombosis. 2. The saphenofemoral junction, common femoral, femoral, and popliteal veins are competent. 3. No superficial venous thrombosis. 4. No venous reflux noted in the small saphenous vein. 5. 1.2 seconds of venous reflux at the proximal below-knee greater saphenous vein. Otherwise, no venous reflux noted in the greater saphenous vein. LEFT. 1. No evidence of deep vein thrombosis. 2. The saphenofemoral junction, common femoral, femoral, and popliteal veins are competent. 3. No superficial venous thrombosis. 4. No venous reflux noted in the small saphenous vein. 5. No venous reflux noted in the greater saphenous vein. Right Lower Venous No evidence of deep vein thrombosis in the common femoral, deep femoral, proximal femoral, mid femoral, distal femoral, popliteal, greater saphenous, small saphenous veins of the right leg. The vessels showed compressibility. Interrogation showed phasic and spontaneous Doppler signals. Right peroneal and posterior tibial veins were not visualized due to edema. Right Venous Insufficiency Duplex The exam was performed with the patient in reverse Trendelenburg. Right saphenopopliteal junction was not identified. Left Lower Venous Known non-occlusive thrombus in the left common femoral vein, one of femoral veins, and popliteal vein. No evidence of thrombosis in proximal greater saphenous and small saphenous veins of the left leg. The vessels showed compressibility. Interrogation showed phasic and spontaneous Doppler signals. Left peroneal and posterior tibial veins were not visualized due to edema. Left Venous Insufficiency Duplex The exam was performed with the patient in reverse trendelenburg. Left saphenopopliteal junction was not identified. Roll Wrapper Details A zambrano scale, color and doppler analysis ultrasound was performed. During the study longitudinal and transverse views were obtained. Continuous wave doppler and pulsed wave doppler was performed. Overall the study quality was technically difficult. Study was technically difficult due to: body habitus and diffuse subcutaneous edema. Chuck Casillas MD CV VASCULAR PROC EDURES Final Result documented in this encounter Visit Diagnoses Diagnosis Venous insufficiency Unspecified venous (peripheral) insufficiency Leg swelling Swelling of limb documented in this encounter Additional Health Concerns Infection Onset Date Last Indicated Resolved Time Enteropathogenic E. coli (EPEC) 02/23/2025 5 Assessment Noted Time PHQ-9 Depression Total Score: 11 025 10:06 AM EDT documented as of this encounter Care Teams Industrial Engineering Manager Relationship Specialty Start Date End Date Chuck Casillas MD [address] [place], [place] PCP - General Internal Medicine 02/18/22 documented as of this encounter
--- OUTSIDE RECORDS SUMMARY | 2025-05-27 13:00 | XMS_ITS | Encounter Summary ---
Author Organization [facility] Address [address] [place] [address] Care Team Providers Care Scheduling Agent Name Role Phone Chuck Casillas MD Primary Care Pr ovider Reason for Visit * Reason Comments Obesity * Consultation (Routine) - Authorized Specialty Diagnoses / Procedures Referred By Lynette anne Referred To Contact Nutrition / Bariatrics Diagnoses Class 2 severe obesity with serious comorbidity and body mass index (BMI) of 38.0 to 38.9 in adult, unspecified obesity type Donte Mosquera MD [address] [place] [address] Phone: tel: fax: Daina Worrell, RD [address] [address] Phone: tel: fax: Referral ID Status Reason Start Date Expiration Date Visits Requested Visits Authorized [id number] Authorized Specialty Services Required 02/27/2025 02/27/2026 1 1 Encounter Details Date Type Department Care Team (Late st Contact Info) Description 05/27/2025 1:00 PM EDT Telemedicine Bariatric Surgery - [place] [address] [phone] Josefina Ryan, RD [address] [phone] Bariatric surgery status (Primary Dx) Social History Tobacco Use Types Packs/Day Years [...] care for your loved ones. For example, director child or elderly care for an older adult? [...] Sign Reading Time Taken Comments Blood Pressure - - Pulse - - Temperature - - Respiratory Rate - - Oxygen Saturation - - Inhaled Oxygen Concentration - - Weight 81.6 kg (180 lb) 05/27/2025 1:00 PM EDT Height - - Body Mass Index 35.15 05/21/2025 1:17 PM EDT documented in this encounter Functional Status * Are you deaf or do you have serious difficulty hearing? Answer Date of Assessment Author No 08/13/2024 7:57 AM EST Dolkim, As carlos Mcintyre RN * Are you [...] 08/13/2024 7:57 AM EST Tracie Demarco RN documented as of this encounter Mental Status * Because of a physical, mental, or emotional condition, do you have serious difficulty concentrating, remembering, or making decisions? (5 years old or older) Answer Entry Date Author No 08/13/2024 7:57 AM EST Tracie Demarco RN documented in this encounter Progress Notes * Josefina Ryan RD - 05/27/2025 1:00 PM EDT Patient-created Goals: -Decrease processed food intake (Ravioli, Salami, Bologna) -Call provider to discuss side effects discussed this appointment 70 - 90 grams of protein per day from lean protein sources such as chicken, turkey, fish, beans, Malay yogurt (Brands: Okios, Ratio; 20-25 g protein), cottage cheese, eggs, tuna 20-30 grams protein each meal; 7-15 grams each snack A minimum of 3 meals per day. Preferably 3 small meals and 2 snacks spaced out over the course 8-10hours Each meal and snack should include protein Protein shakes can replace a meal or snack, look for 20-30 grams of protein, less than 5 grams of added sugar (orgain, premiere) When feasible start 10-15 minute utube strength exercises for beginners * Josefina Ryan RD - 05/27/2025 1:00 PM EDT NUTRITION FOLLOW-UP NOTE: Patient Name: Odette Gorman Date of : 1965 Date of Service: 05/27/2025 SURGEON: Jacques Hawkins MD DESIRED SURGERY: Zepbound: Biliopancreatic limb bypass on 02/10/2023 Recent Dx of blood clots in both legs and lungs Edema Falling asleep while eating Tremors Confusion Excessive thirst/dry mouth Gabapentin dose increase with Oxy contin Pins and needles in feet CHIEF COMPLAINT: Obesity HISTORY: Odette Gorman is a 59 y.o. female who presents for nutrition visit for Weight loss management 9th Ht Readings from Last 1 Encounters: 05/21/25 1.524 m (60 ) Wt today: Wt Readings from Last 27 Encounters: 05/27/25 81.6 kg (180 lb) 05/21/25 81.6 kg (180 lb) 04/30/25 84.4 kg (186 lb) 04/28/25 84.8 kg (187 lb) 04/10/25 80.7 kg (178 lb) 04/09/25 80.7 kg (178 lb) 03/25/25 83.3 kg (183 lb 9.6 oz) 03/14/25 88.9 kg (196 lb) 03/04/25 84.4 kg (186 lb) 02/24/25 84.5 kg (186 lb 3.2 oz) 02/07/25 89.4 kg (197 lb) 02/01/25 85.5 kg (188 lb 9.6 oz) 12/25/24 87.5 kg (193 lb) 12/12/24 89 kg (196 lb 4.8 oz) 10/22/24 90.7 kg (200 lb) 10/14/24 90.7 kg (200 lb) 09/27/24 92.5 kg (204 lb) 09/03/24 98.4 kg (217 lb) 08/27/24 98.4 kg (217 lb) 08/12/24 98.9 kg (218 lb) 08/02/24 98.9 kg (218 lb) 07/11/24 98.9 kg (218 lb) 06/18/24 103 kg (227 lb) 05/03/24 102 kg (225 lb 6.4 oz) 05/01/24 103 kg (226 lb 12.8 oz) 03/13/24 103 kg (228 lb) 02/14/24 108 kg (238 lb) Body mass index is 35.15 kg/m??. Wt before surgery: 288 Wt change since surgery 108 EBW = current - wt at BMI of 25: 180 - 130 = 50 GI issues: Diarrhea chronic Challenges: a lot going on medically, excessively thirsty , fallin asleep when eating and throughtout day Changes since last visit: focusing on protein EATING HABITS/DIET RECALL: pt no appetite, not on consistent schedule eating pattern Breakfast: cream of wheat and oatmeal, eggs, sausage, with cottage cheese Lunch: soup, cold cuts, ravioli Dinner: chicken, broccoli, rice, baked potato Beverages: water gallon and more (excessive throat) Gatorade zero, Dines out: No Exercise: none Reasons pt cannot exercise: Nutrition diagnosis: Class Class II obesity related to Undesirable Food Choices and Inadequate Physical Activity as evidenced by A BMI 35 Patient-created Goals: -Decrease processed food intake (Ravioli, Salami, Bologna) -Call provider to discuss side effects discussed this appointment 70 - 90 grams of protein per day from lean protein sources such as chicken, turkey, fish, beans, Malay yogurt (Brands: Okios, Ratio; 20-25 g protein), cottage cheese, eggs, tuna 20-30 grams protein each meal; 7-15 grams each snack A minimum of 3 meals per day. Preferably 3 small meals and 2 snacks spaced out over the course 8-10hours Each meal and snack should include protein Protein shakes can replace a meal or snack, look for 20-30 grams of protein, less than 5 grams of added sugar (orgain, premiere) When feasible start 10-15 minute utube strength exercises for beginners Literature Provided: Goal sheets and RD contact information Interventions: Discuss the importance of eating at least 3 meals/day and the impact on metabolism and Discussed the importance of including protein with each meal and snack Nutrition assessment: Pt is 59 y.o. Female with h/o has a past medical history of Acute hypoxemic respiratory failure ([facility] V24, [facility] V28) (01/24/2025), Asthma (01/14/2014), Bilateral primary osteoarthritis of knee (02/26/2018), Chest pain (06/19/2024), COVID-19 (11/09/2020), Edema (12/26/2007), Fibromyalgia (12/26/2007), Galactorrhea in female (12/22/2015), GERD (gastroesophageal reflux disease) (12/26/2007), History of bariatric surgery (01/02/2013), History of substance abuse ([place] V24, [facility] V28) (02/25/2008), HSV (herpes simplex virus) anogenital infection, HTN (hypertension),benign (12/26/2007), Hypokalemia (12/26/2007), Lung nodule, multiple (04/13/2018), Major depressionin remission ([facility] V24) (12/26/2007), Migraine (12/26/2007), Morbid obesity with body mass index(BMI) of 50.0 to 59.9 in adult ([facility] V24, [facility] V28) (02/26/2018), ARPITA (obstructive sleep apnea) (09/18/2008), Pituitary microadenoma with hyperprolactinemia ([facility] V24, [facility] V28) (12/22/2015), Pseudotumor cerebri (12/26/2007), Rhabdomyolysis (06/19/2024), Right shoulder tendinitis (2017), S/P gastric surgery, Urinary and bowel incontinence (07/11/2024), and Vitamin D deficiency (05/16/2012). She has no past medical history of History of malignant neoplasm of large intestine, History of other specified conditions presenting hazards to health, Personal history of malignant neoplasm of breast, Personal history of malignant neoplasm of ovary, or Solitary cyst of breast. Obesity class II Stage of change/Barriers to understanding: Pt is motivated to make changes to diet and lifestyle and No barriers to understanding Concerns regarding considerations for bariatric surgery: No surgery plan for pt a this time Monitoring/Evaluation: Monitor weight and Monitor progress toward nutrition goals Patient nutritionally ready for surgery: n/a RD to see patient for follow-up nutrition visit in 1 week Visit Time: Total time of the visit was spent face to face in medical nutritional therapy was [address] NUTRITION SERVICES documented in this encounter Plan of Treatment Upcoming Encounters Date Type Department Care Team (Late st Contact Info) Description 06/02/2025 8:00 AM EST Telemedicine Bariatric Surgery - [address] [phone] [phone] 06/04/2025 2:00 PM EST Office Visit Adult Medicine [address] [phone] Rhona Chris PA [address] [place] [address] 06/17/2025 1:30 PM EST Office Visit Adult Medicine [address] [place], [place] [phone] Rhona Chris, MIKE [address] [place] [address] 06/19/2025 1:30 PM EST Ancillary Procedure [facility] [address] [place] [phone] 06/25/2025 1:20 PM EST Office Visit Gastroenterology - [address] [place] [address] Karlie Kim NP [address] [place] [phone] 07/09/2025 1:00 PM EST Consult Vascular Surgery - [place] [address] [place] [phone] Camille Mcgill PA [address] [place] [phone] 08/14/2025 2:00 PM EST Office Visit Adult Medicine [place] [phone] [place], [place] [phone] Chuck Casillas MD [address] [place], [place] 10/10/2025 1:10 PM EDT Office Visit [facility] - [address] [facility] [address] [place] [address] Viola Gonzalez NP [address] [place] [address] documented as of this encounter Visit Diagnoses Diagnosis Bariatric surgery status- Primary documented in this encounter Orders Outpatient Referral Count Last Ordered Date Fir st Ordered Date AMB REFERRAL TO NUTRITION SERVICES 1 2024 documented in this encounter Additional Health Concerns Infection Onset Date Last Indicated Resolved Time Enteropathogenic E. coli (EPEC) 02/23/2025 5 Assessment Noted Time PHQ-9 Depression Total Score: 11 025 10:06 AM EDT documented as of this encounter Care Teams Scheduling Agent Relationship Specialty Start Date End Date Chuck Casillas MD [address] [place] [address] PCP - General Internal Medicine 02/18/22 documented as of this encounter
--- NOTE | 2025-05-30 12:50 | A.OFFVIS_ITS ---
Vital Signs 05/30/25 12:54 Height 5 ft Weight 182 lb 4 oz BMI 35.6 BP 128/70 Blood Pressure Location Lt brachial Position Sitting Pulse 64 Pulse Source Pulse Oximeter Pulse Oximetry (%) 100 Oxygen Delivery Method Room Air Intake Visit Reasons: F/U per [facility] Intake Note: Follow up headache, tremors and trouble sleeping Chancery Clerk Required: No Accompanied by: Self / Same As Patient Allergies Penicillins Allergy (Intermediate, Verified 05/30/25 12:51) Hives Medication List - Last Reconciled 05/30/25 by LUCY Leiva acetaminophen 1,000 mg PO TID acetazolamide ER 2,000 mg (4 x 500 mg) PO BID 30 days albuterol sulfate 90 mcg/actuation (Ventolin HFA) inhalation albuterol sulfate mg inhalation TID aluminum hydrox-magnesium carb 95-358 mg/15 mL (Acid Gone Antacid) mL PO PRN apixaban (Eliquis) 5 mg PO BID baclofen 10 mg PO BEDTIME cholecalciferol (vitamin D3) (Vitamin D3) 50 mcg PO DAILY clotrimazole-betamethasone 1-0.05 % appl topical DAILY gabapentin 400 mg PO BID galcanezumab-gnlm (Emgality Pen) 240 mg (2 mL) subcut ONCE 30 days hydroxyzine HCl 50 mg PO BEDTIME PRN iron asp [id number] 75 mg iron-175 mg-1,700 mcgDFE (Niferex (ferrous asparto glyc)) 1 tab PO DAILY magnesium oxide 250 mg PO DAILY morphine 15 mg PO BID PRN multivitamin 1 tab PO DAILY pantoprazole 40 mg PO BID potassium chloride ER (Klor-Con M) mEq PO TID simvastatin 10 mg PO BEDTIME topiramate 200 mg PO BID 30 days torsemide 20 mg PO DAILY tramadol 50 mg PO TID PRN ubrogepant (Ubrelvy) 50 - 100 mg (0.5 - 1 x 100 mg) PO ONCE PRN 30 days vitamin A 1 cap PO DAILY HPI Comments Details: 59-yr-old yr old female presents for follow-up of chronic migraine, idiopathic intracranial hypertension in setting of obesity, sleep difficulties, and tremor. PMH includes pituitary microadenoma with hyperprolactinemia, anemia, HTN, HLD, CAD, asthma, renal cysts, hiatal hernia, tremors, chronic pain and myofascial syndrome, fibromyalgia, arthritis, vitamin-D deficiency, carpal tunnel syndrome, depression, HSV, GERD, constipation, history of E coli. Patient was last seen by myself on 06/24/2024. She was last seen in this clinic by Dr. Carvajal on 05/07/2025, for evaluation of worsening coarse tremors and worsening headaches. At that time, a brain MRI with and without contrast was ordered, which was completed and did not show any underlying etiologies to explain her increased tremors or central evidence of intracranial hypertension. She also reports multiple hospitalizations at [facility] in November, December, and January for peripheral swelling. She states they reduced many of her medications. She was started on Eliquis d/t BLE DVT and PE. She continues on chronic iron therapy, which she is now taking with vitamin-C. She is also on potassium supplementation for recurrent hypokalemia. She also reports she has started to fall asleep, even during a conversation or while eating. Thus, she is not allowing herself to drive. However, she states she missed her previously ordered In-lab PSG due to being hospitalized. She states she usually gets 5-6 hrs of sleep a night. Patient reports her headaches had improved, however they worsened all of a sudden in the last 2 months. She has lost almost 40 lb since her last visit here. She denies any significant visual changes, though may have floaters. 2023 eye exam, did not show papilledema. She states the hospital her Fioricet, and initially she was very worried about this, but now is open to trying an alternate acute migraine treatment. She is compliant with her topiramate and acetazolamide. She notes that, at some point she had misplaced her Acetazolamide, and during that time she actually did feel more alert. She has also been waking up at times with eye, nose, and lip swelling. She states a cyst was found in her spine, and this needs to be surgically pop it- this was told to her by her oracle identity management consultant at [facility]. She notes increased difficulty lifting her legs, and now needs to use a cane or walker. She is about to start home PT/OT. 06/24/2024, Initial HPI: Right-handed 58-yr-old female presents for new pt evaluation of headache disorder for transfer of care. Pt reports she has had severe headaches as a teenager/young adult. She was eventually evaluated by Dr Conner and was dx'd w/ IIH and migraine. Had LP x's 2- does not recall what OP was. Her weight was above 300lbs at time of Dx. She does not recall when her last brain imaging was- states was done for ? of pituitary cyst d/t h/o galactorhea.. Her last eye exam was within the year- exam WNL- at [facility]. She was previously f/b Dr Conner at [facility]- transferred as he was in [place], and then Dr Ca- transferred upon his intermediate. PMH and ROS are notable for:? General: occasionally sees floaters Musculoskeletal disorders or injury: arthritis, neck, and back pain. States a cyst was recently found in lumbar spine MRI (at [facility]) by physiatry- [facility].- awaiting tx for this. Mood d/o: Depression- mood is now stable. No current therapist. Respiratory d/o: Asthma CV disease: HTN, HLD- on statin GI d/o: GERD, more prone to loose stools. 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 galactorhea- ? pituitary cyst. Family history of migraine or other headache disorder: maybe her sister Pertinent denials include: History of concussion/head injury, Clotting or hematology d/o, Endocrine d/o, metabolic d/o, History of seizure, syncope, or drop attacks Lifestyle considerations: Sleep routine: Usual bedtime: 2am and wake-up time: 4am and then goes back to sleep Sleep difficulties: Endorses: ARPITA- dx'd prior to gastric bypass in 2002 sx, then gained wt- but is agn losing wt follwoing a surgical intervention,Snoring, Excessive daytime sleepiness, Fatigue, Bruxism- does not use a mouthguard- ahs a dentists next week. Caffeine use: 1 cup of coffee per day occasionally. Substance use: none Exercise:?she is working on it, trying to walk more Employment:?On disability. Headache questionnaire:? Typical headache characteristics: Prodrome symptoms: unknown Aura: sees lights during the headache. Pain intensity: severe Location, quality, characteristics: Varies, can be throbbing/pressure/stabbing pain in the back of head or can be one sided or bilateral, or retro-orbital. More recently stabbing pain above right eye. Associated symptoms: yawning, mild photophobia, phonophobia, mild nolan whooshing tinnitus- better now, osmophobia, allodynia, nausea, sometimes lightheadedness, fatigue, mild cognitive difficulties, activity intolerance if severe. Postdrome: none Triggers: certain smells, sounds. Denies positional headache. Time of day: No specific time of day Duration and Frequency: How does headache impact your life? Varies- can be 4 headache per week, lasting hours- up to 6-7 hours. Current acute medication use/interventions: Fioricet- per pharmacy receives 100 tabs q 25 days. Current preventative medication use: Diamox ER 2000mg bid and Topiramate 200mg bid Non-pharmacological interventions: rest if needed. [facility] Medical History (Updated 05/30/25 @ 14:50 by LUCY Leiva) Coarse tremors HTN (hypertension), benign Gastroesophageal reflux disease without esophagitis Migraine Pseudotumor cerebri Hypokalemia Major depression in remission Fibromyalgia History of substance abuse ARPITA (obstructive sleep apnea) Vitamin D deficiency Asthma Pituitary microadenoma with hyperprolactinemia Galactorrhea in female Right shoulder tendinitis Bilateral primary osteoarthritis of knee HSV (herpes simplex virus) anogenital infection Hiatal hernia with gastroesophageal reflux Class 3 severe obesity with body mass index (BMI) of 50.0 to 59.9 in adult Insomnia Chronic midline low back pain without sciatica Renal cyst Venous insufficiency Surgical History H/O endoscopy H/O section Hx laparoscopic cholecystectomy History of hysterectomy H/O hernia repair H/O colonoscopy History of carpal tunnel release Gastric bypass status for obesity History of bariatric surgery Family History Father Diabetes Hypertension CAD (coronary artery disease) Mother Hypertension Diabetes Sister Hypertension Social History Alcohol intake: never Patient Tobacco Use Status: Never used Tobacco Review of Systems ENT Reports Normal hearing present Neuro Reports Normal hearing present Physical Exam Vital Signs: Last Vital Signs Pulse 64 05/30/25 12:54 BP 128/70 05/30/25 12:54 Pulse Ox 100 05/30/25 12:54 Oxygen Delivery Method Room Air 05/30/25 12:54 BMI result Body Mass Index 35.6 Const Orientation/consciousness: patient oriented x3 Eyes Pupils: Equal, round and reactive pupils present Resp Effort & Inspection: normal respiratory effort and able to speak in complete sentences Neuro Other: BUE MS 5/5 BLE MS 5-/5 General: patient oriented x3 Cranial nerves: Yes Equal, round and reactive pupils present, Yes Nystagmus not present, Yes Midline tongue present, Yes Symmetric palate elevation present, Yes Normal hearing present, Yes Ability to bilaterally rotate head present and Yes Ability to bilaterally elevate shoulders present Cognition (Neuro): normal cognition Gait exam (Neuro): Normal gait present Psych Appearance: grossly normal Mental Status: mental status grossly normal Speech and movement: Normal speech and movement present Affect: normal affect Attitude: cooperative Thought process: Normal thought process present Results Reviewed Results Reviewed: Exam Date:?05/27/2024 PROCEDURE: MR SPINE LUMBAR without CONTRAST INDICATION: Vertebrogenic low back pain. Patient presents with low back pain with left leg pain, weakness and numbness/tingling. TECHNIQUE: Unenhanced multiplanar, multisequence MR imaging of the lumbar spine. COMPARISON: None Available. FINDINGS: Normal alignment of lumbar vertebral bodies. The vertebral bodies are of normal height. Mixed fatty marrow signal intensity. Intervertebral disc spaces are maintained. Lumbar facet arthrosis. Question periaortic adenopathy. Conus and cauda equina of normal appearance. Conus tip L1-L2. Examination through the L1-L2 intervertebral level revealing facet arthrosis. No significant central stenosis or foraminal narrowing. Examination through the L2-L3 intervertebral level revealing facet arthrosis. Prominence ligamenta flavum. No significant central stenosis. No significant foraminal narrowing. Examination through the L3-L4 intervertebral level revealing facet arthrosis. Prominence ligamenta flavum. No significant central stenosis. Mild LEFT for aminal narrowing. No significant RIGHT foraminal narrowing. Examination through the L4-L5 intervertebral level revealing facet arthrosis. Prominence of ligamentum flavum. No significant central stenosis. 7 mm synovial cyst along the anterior medial aspect of the LEFT L4-L5 facet encroaching on the LEFT lateral recess and contributing to a mild to moderate LEFT foraminal narrowing. There is mild to moderate RIGHT foraminal narrowing. Examination through the L5-S1 intervertebral level without central stenosis. Mild to moderate bilateral foraminal narrowing. IMPRESSION: Lumbar spondylotic changes and facet arthrosis. No findings of fracture or listhesis. No findings of acute disc protrusion. Varying degrees of relative chronic appearing central stenosis and foraminal narrowing as detailed above. Particular note made of a 7 mm synovial cyst located along the anterior medial aspect of the LEFT L4-L5 facet encroaching on the LEFT lateral recess and contributing to a mild to moderate LEFT foraminal narrowing at this level. No priors are available for comparison. Question retroperitoneal adenopathy. No priors are available for comparison. Consider CT examination of the abdomen and pelvis. Osei Middleton MD Signed by Osei Middleton MD Assessment & Plan Assessment & Plan (1) Migraine with aura: Code(s): G43.109 - Migraine with aura, not intractable, without status migrainosus Category: Medical Qualifiers: Status migrainosus presence: without status migrainosus Intractability: not intractable Qualified Code(s): G43.109 - Migraine with aura, not intractable, without status migrainosus (2) Pseudotumor cerebri: Code(s): G93.2 - Benign intracranial hypertension Category: Medical (3) Pituitary microadenoma with hyperprolactinemia: Code(s): D35.2 - Benign neoplasm of pituitary gland; E22.9 - Hyperfunction of pituitary gland, unspecified Category: Medical Plan: On 01/27/2025, follow-up brain MRI with and without contrast, showed normal appearance of the pituitary (4) ARPITA (obstructive sleep apnea): Comment: With hypersomnia Code(s): G47.33 - Obstructive sleep apnea (adult) (pediatric) Category: Medical (5) Sleep difficulties: Code(s): G47.9 - Sleep disorder, unspecified Category: Medical (6) Excessive daytime sleepiness: Comment: Burdett sleepiness scale 21 Code(s): G47.19 - Other hypersomnia Category: Medical (7) Snoring: Code(s): R06.83 - Snoring Category: Medical Plan Discussion notes Discussed with the patient that she is currently taking high-dose Acetazolamide and topiramate due to a history of idiopathic intracranial hypertension. However, she has experienced significant weight loss since her initial diagnosis, when she weighed 300 lb, and now her weight is 182 lb. The 2023 eye exam did not show papilledema. A recent brain MRI with and without contrast did not show any evidence for intracranial hypertension or pituitary process. Therefore, likely she no longer has active intracranial hypertension and no longer requires a high dose of both Acetazolamide and topiramate. I advise the patient that we should try to wean her off the Acetazolamide, as this may be contributing to her electrolyte and metabolic imbalance, particularly the hy pokalemia. However, while we reduce the Acetazolamide, we will need weekly lab work to monitor her blood counts, renal function, and electrolyte balance. In the meantime, we will optimize her migraine treatment regimen and reschedule her in-lab sleep study. Discussed that possibly her tremors will improve if these underlying conditions are optimized. You advised to undergo: Follow-up eye exam at [facility]. In-lab sleep study (PSG), as you have lost > 100lbs since your previous sleep study. LP for OP- pt declines at this time, as previous LP was a traumatic tap. Routine eye exam as scheduled- will request recent reports. Follow-up with your physiatry for management of your known L4-5 synovial cyst, Lumbar spondylotic changes and facet arthrosis. For tremor: * Continue gabapentin as ordered * Monitor effect of the following treatment plan changes in your tremor For excessive daytime sleepiness and history of ARPITA: * In-lab sleep study as ordered * Maintain a regular bedtime and wake-up time * May take early day short naps, less than 20 minutes * Avoid driving if sleepy For overall headache management: * Optimize good self-care, including but not limited to maintaining a healthy diet, adequate fluid intake, adequate sleep, and engaging in regular physical activity. * Track headaches, especially after any treatment regimen changes. Migraine [employer] is one of many headache tracking apps. For acute headache treatment: It is important to take acute medications at the first sign of headache. * Discontinue Fioricet * Trial Ubrogepant (Ubrelvy) 100mg tab: * Take Ubrogepant 1/2 - 1 tab (50-100mg) at onset of headache. * You may repeat the dose in 2 hours. Max of 2 tabs (200mg) per 24 hours. * You may take Ubrogepant with OTC Tylenol 650 to a 1000 mg every 4-6 hours as needed. * Do not take Ubrogepant with or within 5 days of taking Butalbital (Fioricet or Fiorinal). * Possible adverse effects of Ubrogepant include, but are not limited to, fatigue, nausea, dry mouth, constipation. * This medication will require an insurance prior authorization before you will be able to receive this from your pharmacy. ? * We will initiate the prior authorization process per your specific health insurance's requirements. ? * However, please note, that your health insurance belongs to you, and you may also need to communicate with your insurance company in order for the prior authorization request to be processed. ?it is possible that you will also need to speak to your insurance regarding requesting the prior authorization * Continue Ondansetron 4 mg every 4-6 hours as needed for nausea Previous acute migraine medication trials: Unsure. Acute migraine medication contraindications: All triptans and DHE due to HTN, HLD, CAD, DVT/PE. For headache prevention medication: * Continue Topiramate 200mg twice a day * Discontinue Acetazolamide ER 500mg tab, 4 tabs (2000mg) twice a day order * Decrease Acetazolamide ER 500 mg tab, 4 tabs twice a day by 1 tab per day every 3 days until you have completely stopped Acetazolamide. * During this taper, have your labs (CBC and BMP) drawn every 7 days at [facility] [address]. * Start Emgality 120mg/ml auto-injection: * Loading dose: 240mg (2 120mg/ml auto-injections) via subcutaneous injection in 2 different sites). * Then 30 days after loading dose, start Maintenance dose: 120mg (120mg/ml autoinjector) subcutaneous injection every month. * Patient requests injection training once Emgality available. * Important considerations regarding Emgality: * Emgality will likely require insurance prior authorization prior to receiving it from the pharmacy. * Potential side effects include allergic reaction and injection site reactions. * Emgality injection training educational video is available to view on [employer] * Store Emgality in the refrigerator in it's original packaging in order to protect from light. * Remove Emgality at least 1 hour prior to taking the injection. * Emgality can be left out of the fridge for?up to 7 days at a temperature not above 86?F. If either of these conditions are exceeded, then Emgality must be thrown away. * Once Emgality has been stored out of refrigeration, do not place it back in the refrigerator. Previous migraine prevention medication trials: Amitriptyline- caused mood changes. Would not increase topiramate further due to hypersomnia, cognitive difficulty symptoms. Migraine prevention medication contraindications: Beta-blockers due to symptomatic asthma dx. Depakote, as patient already is experiencing tremor. Written instructions given to patient. Will follow-up upon review of above and patient to follow-up in clinic in 3-4 months or sooner prn. Orders: Orders Complete Blood Count Auto Diff Today D64.9 - Anemia, unspecified, E87.6 - Hypokalemia, G25.2 - Other specified forms of tremor RT PSG in-lab sleep study Today F11.90 - Opioid use, unspecified, uncomplicated, G47.19 - Other hypersomnia, G47.33 - Obstructive sleep apnea (adult) (pediatric), G47.9 - Sleep disorder, unspecified, R06.83 - Snoring Basic Metabolic Panel Today D64.9 - Anemia, unspecified, E87.6 - Hypokalemia, G25.2 - Other specified forms of tremor Referrals Optometry Referral G43.109 - Migraine with aura, not intractable, without status migrainosus, G93.2 - Benign intracranial hypertension, H43.399 - Other vitreous opacities, unspecified eye Medications: New ubrogepant (Ubrelvy) Take at the onset of migraine, may repeat in 2 hours (may take with/ Tylenol) 50 - 100 mg (0.5 - 1 x 100 mg) PO ONCE PRN 16 tabs 3RF migraine headache 30 days galcanezumab-gnlm (Emgality Pen) Loading dose: 120 mg subcu injection x2 in alternate sites (total 240 mg). To be followed by maintenance dose of 120 mg subcu q.month. 240 mg (2 mL) subcut ONCE 2 mL 0RF 30 days Discontinued [id number]-[id number]-ycvl 50-325-40 mg Discontinued Reason: Doctor's Order 2 tabs PO BID 30 days 120 tabs 0RF Coding Level of Care Code Est Pt Level 4 (18709) Diagnoses Migraine with aura and without status migrainosus, not intractable G43.109 Status migrainosus presence: without status migrainosus Intractability: not intractable Pseudotumor cerebri G93.2 Pituitary microadenoma with hyperprolactinemia D35.2; E22.9 ARPITA (obstructive sleep apnea) G47.33 Sleep difficulties G47.9 Excessive daytime sleepiness G47.19 Snoring R06.83
[2025-05-30 12:54] VITALS: BP 128/70; PULSE 64; O2SAT 100; BMI 35.6
--- OUTSIDE RECORDS SUMMARY | 2025-05-30 13:55 | XMS_ITS | Encounter Summary ---
Author Organization [facility] [place] [address] Care Team Providers Care Rotary Driller Helper Name Role Phone Chuck Casillas MD Primary Care Pr ovider Encounter Details Date Type Department Care Team (Late st Contact Info) Description 05/27/2025 Results Follow-Up Adult Medicine [address] [phone] Chuck Casillas MD [address] [place] [address] Social History Tobacco Use Types Packs/Day Years [...] care for your loved ones. For example, summer child caregiver or elderly care for an older adult? [...] 7:57 AM EST Tracie Demarco RN * Are you blind or do [...] carlos Mcintyre RN documented in this encounter Ordered Prescriptions Prescription Sig Dispense Quantity Refills Last Filled Start Date End Date iron asp [id number] cc (Niferex, ferrous asparto glyc,) 75 mg iron-175 mg-1,700 mcgDFE tablet Take 1 tablet by mouth 1 (one) time each day. 90 tablet 1 05/27/2025 08/25/2025 documented in this encounter Progress Notes * Debbi Andersen RN - 05/29/2025 11:23 AM EDT I left pt a message to call the office at and sent a my chart message. documented in this encounter Plan of Treatment Upcoming Encounters Date Type Department Care Team (Late st Contact Info) Description 06/02/2025 8:00 AM EST Telemedicine Bariatric Surgery - [address] [phone] Josefina Ryan, RD [address] [facility] [address] [place] [address] 06/04/2025 2:00 PM EST Office Visit Adult Medicine [facility] [address] [place] [address] Rhona Chris PA [address] [place] [address] 06/17/2025 1:30 PM EST Office Visit Adult Medicine [address] [phone] Rhona Chris PA [address] [place] [address] 06/19/2025 1:30 PM EST Ancillary Procedure [facility] [address] [facility] [address] [place] [address] 06/25/2025 1:20 PM EST Office Visit Gastroenterology - [address] [facility] [facility] [address] [place] [address] Karlie Kim, [employer] [address] [place] [phone] 07/09/2025 1:00 PM EST Consult Vascular Surgery - [place] [address] [place] [address] Camille Mcgill PA [address] [place] [address] 08/14/2025 2:00 PM EST Office Visit Adult [address] [phone] Chuck Casillas MD [address] [place], [place] 10/10/2025 1:10 PM EDT Office Visit [facility] - Medical [address] [place] [phone] Viola Gonzalez, JEREMY [address] [place] [address] Dr Foster [address] [place] [phone] documented as of this encounter Visit Diagnoses Not on filedocumented in this encounter Discontinued Medications Medication Sig Discontinue Reason Start Date End Da te dicyclomine (BENTYL) 10 mg capsule TAKE 1 CAPSULE (10 MG TOTAL) BY MOUTH 4 (FOUR) TIMES A DAY IF NEEDED (CRAMPS). Therapy completed 04/09/2025 05/27/2025 iron asp [id number] (Niferex, ferrous asparto glyc,) 75 mg iron-175 mg-1,700 mcgDFE tablet Take 1 tablet by mouth 1 (one) time each day. Reorder 02/13/2025 05/27/2025 documented as of this encounter Additional Health Concerns Infection Onset Date Last Indicated Resolved Time Enteropathogenic E. coli (EPEC) 02/23/2025 5 Assessment Noted Time PHQ-9 Depression Total Score: 11 025 10:06 AM EDT documented as of this encounter Care Teams Rotary Driller Helper Relationship Specialty Start Date End Date Chuck Casillas MD [address] [facility] [place] [facility] - General Internal Medicine 02/18/22 documented as of this encounter
--- OUTSIDE RECORDS SUMMARY | 2025-05-30 13:55 | XMS_ITS | Encounter Summary ---
Author Organization [facility] [place] [address] Care Team Providers Care Christian Science Healer Name Role Phone Chuck Casillas MD Primary Care Pr ovider Encounter Details Date Type Department Care Team (Late st Contact Info) Description 03/04/2025 Nurse Triage Adult Medicine [address] [phone] Chuck Casillas MD [address] [place] [address] Social History Tobacco Use Types Packs/Day Years [...] care for your loved ones. For example, child life therapist or elderly care for an older adult? [...] No 08/13/2024 7:57 AM Tracie Diego RN * Are you blind or do [...] carlos Mcintyre RN documented in this encounter Progress Notes * Isa Garcia RN - 03/11/2025 11:22 AM EDT Spoke with pt. She confirms she has a hospital follow up for this Monday and has rx refill for Bentyl that was filled . I advised if she has any problems or concerns prior to her follow up to call the office for any return symptoms of swelling and edema to return to ER.pt. agrees documented in this encounter Plan of Treatment Upcoming Encounters Date Type Department Care Team (Late st Contact Info) Description 06/02/2025 8:00 AM EST Telemedicine Bariatric Surgery - [place] [address] [phone] Josefina Ryan, GERALD [address] [phone] 06/04/2025 2:00 PM EST Office Visit Adult [address] [phone] Rhona Chris PA [address] [place] [address] 06/17/2025 1:30 PM EST Office Visit Adult Medicine [address] [phone] Rhona Chris, MIKE [address] [place] [address] 06/19/2025 1:30 PM EST Ancillary Procedure [facility] Cardiology [facility] [address] [place] [phone] 06/25/2025 1:20 PM EST Office Visit Gastroenterology - [address] [facility] [address] [place] [address] Karlie Kim NP 230 [place] [phone] 07/09/2025 1:00 PM EST Consult Vascular Surgery - [place] [address] [place] [address] Camille Mcgill PA 230 [place] [address] 08/14/2025 2:00 PM EST Office Visit Adult Medicine [address] [phone] Chuck Casillas MD [address] [place], [place] 10/10/2025 1:10 PM EDT Office Visit [facility] [address] [place] [phone] Viola Gonzalez NP [address] [place] [phone] documented as of this encounter Visit Diagnoses Not on filedocumented in this encounter Additional Health Concerns Infection Onset Date Last Indicated Resolved Time Enteropathogenic E. coli (EPEC) 02/23/2025 5 Assessment Noted Time PHQ-9 Depression Total Score: 11 025 10:06 AM EDT documented as of this encounter Care Teams Christian Science Healer Relationship Specialty Start Date End Date Chuck Casillas MD [address] [facility] [place], [place] PCP - General Internal Medicine 02/18/22 documented as of this encounter
--- OUTSIDE RECORDS SUMMARY | 2025-05-30 13:55 | XMS_ITS | Clinical Summary ---
Author Organization [facility] Address [address] [address] Care Team Providers Care Bolt Man Name Role Phone Chuck Casillas MD Primary Care Pr ovider Social History Tobacco Use Types Packs/Day Years Used Date Smoking Tobacco: Never Assessed Comments Unknown Sex and Gender Information Value Date Recorded Sex Assigned at Not on file Legal Sex Female 11:11 AM EDT Gender Identity Not on file Sexual Orientation Not on file Plan of Treatment Health Maintenance Due Date Last Done Comments CT Colonography 1965 Colonoscopy 1965 Colorectal Cancer Screening 1965 FIT-DNA 1965 FIT 1965 FOBT 1965 HIV Screening 1965 Lipid Panel 1965 Sigmoidoscopy 1965 MMR Vaccines (1 of 1 - Stand jhonny series) 1966 Hepatitis C Screening 11/03/1983 DTaP/Tdap/Td Vaccines (1 - Tdap) 1984 Hepatitis B Vaccines (1 of 3 - 19+ 3-dose series) 1984 Pap Smear 1986 Cervical Cancer Screening 11/03/1995 HPV/Cotest 11/03/1995 Mammogram 2005 Pneumococcal Vaccine: 50+ Ye ars (1 of 1 - PCV) 11/03/2015 Zoster Vaccines (1 of 2) 11/03/2015 Depression Screening 07/31/2024 COVID-19 Vaccine ( - 2024-2 6 season) 2025 Influenza Vaccine (#1) 2025 HIB Vaccines Aged Out No longer eligi ble based on patient's age to complete this topic HPV Vaccines Aged Out No longer eligi ble based on patient's age to complete this topic Hepatitis A Vaccines Aged Out No long er eligible based on patient's age to complete this topic IPV Vaccines Aged Out No longer eligi ble based on patient's age to complete this topic Meningococcal B Vaccine Aged Out No l onger eligible based on patient's age to complete this topic Meningococcal Vaccine Aged Out No bel petron[place] eligible based on patient's age to complete this topic Rotavirus Vaccines Aged Out No longer eligible based on patient's age to complete this topic [facility] Care Teams Bolt Man Relationship Specialty Start Date End Date Chuck Casillas MD PCP - General Family Medicine 02/20/25
--- OUTSIDE RECORDS SUMMARY | 2025-05-30 13:55 | XMS_ITS | Encounter Summary ---
Author Organization [facility] Address [address] [place] [address] Care Team Providers Care Seasonal Package Handler Name Role Phone Chuck Casillas MD Primary Care Pr ovider Reason for Visit * Reason Onset Date Comments Fitting for DME 05/20/2025 Encounter Details Date Type Department Care Team (Late st Contact Info) Description 05/20/2025 Telephone Adult Medicine [address] [phone] Chuck Casillas MD [address] [place] [address] Social History Tobacco Use Types Packs/Day Years [...] for your loved ones. For example, child support officer or elderly care for an older adult? [...] documented in this encounter Progress Notes * Nolberto Carter MA - 05/26/2025 4:19 PM EDT Signed orders faxed * Kayla Sharpe - 05/23/2025 8:26 AM EDT Signed scanned and faxed * Nolberto Carter MA - 05/22/2025 5:27 PM EDT To PCP for sig * Kayla hSarpe - 05/20/2025 4:08 PM EDT DME REQUEST Name of Product: bench, transfer w/ back Specific information about product # Needed 1 Reason patient is asking for this supply? I26.99 M79.7 M17.0 Have you received this supply before? If yes , when?: No Have you discussed the need for this supply with a provider at a recent visit? If yes, with who andwhen? No When completed: Fax to other office/MD/pharmacy at fax # [phone] Who is requested? Hawa Is this a fax request? yes Have you told the patient it will take 7-10 days for completion of this request? Yes documented in this encounter Plan of Treatment Upcoming Encounters Date Type Department Care Team (Late st Contact Info) Description 06/02/2025 8:00 AM EST Telemedicine Bariatric Surgery - [place] 175 [facility] 120 [place] [phone] Josefina Ryan, GERALD 175 [facility] 120 [place] [phone] 06/04/2025 2:00 PM EST Office Visit Adult Medicine [address] [phone] Rhona Chris, MIKE 305 [place] [address] 06/17/2025 1:30 PM EST Office Visit Adult Medicine [address] [phone] Rhona Chris, MIKE 305 [place] [address] 06/19/2025 1:30 PM EST Ancillary Procedure [facility] - [facility] 101 300 [facility] 101 [place] [phone] 06/25/2025 1:20 PM EST Office Visit Gastroenterology - 299 [facility] 299 [facility] 419 [place] [phone] Karlie Kim, JEREMY 230 [place] [phone] 07/09/2025 1:00 PM EST Consult Vascular Surgery - [place] [address] [place] [address] Camille Mcgill PA [address] [place] [address] 08/14/2025 2:00 PM EST Office Visit Adult Medicine [facility] 444 [place], [place] [phone] Chuck Casillas MD 444 [place] [phone] 10/10/2025 1:10 PM EDT Office [facility] Cardiology [facility] [address] [place] [phone] Viola Gonzalez NP 2 [facility] [address] [place] [phone] documented as of this encounter Visit Diagnoses Not on filedocumented in this encounter Additional Health Concerns Infection Onset Date Last Indicated Resolved Time Enteropathogenic E. coli (EPEC) 02/23/2025 5 Assessment Noted Time PHQ-9 Depression Total Score: 11 025 10:06 AM EDT documented as of this encounter Care Teams Seasonal Package Handler Relationship Specialty Start Date End Date Chuck Casillas MD [facility] [place] PCP - General Internal Medicine 02/18/22 documented as of this encounter
--- OUTSIDE RECORDS SUMMARY | 2025-05-30 13:55 | XMS_ITS ---
Author Name [facility] Organization Unknown Care Team Organization Name Specialty Phone Email Start Date End Da te [facility] BHARGAVI MICHEL Primary Care [email or web address] 12/05/2022 4 [facility] Puja Palomino Primary Care 06/07/2022 4
--- OUTSIDE RECORDS SUMMARY | 2025-05-30 13:55 | XMS_ITS | Encounter Summary ---
Author Organization [facility] Address [address] [place] [address] Care Team Providers Care Clinical Material Handler Name Role Phone Chuck Casillas MD Primary Care Pr ovider Reason for Visit * Reason Onset Date Comments Forms/questionnaires 05/27/2025 Encounter Details Date Type Department Care Team (Late st Contact Info) Description 05/27/2025 Telephone Adult Medicine [address] [phone] Chuck Casillas MD [address] [place] [address] Social History Tobacco Use Types Packs/Day Years [...] care for your loved ones. For example, early childhood assistant or elderly care for an older adult? [...] documented in this encounter Progress Notes * Michelle Sharma MA - 05/27/2025 9:59 AM EDT Form was signed by provider. Needs JULIETA. Pt will sign JULIETA when she pick it up. Form placed in [facility]. * Kayla Sharpe - 05/27/2025 9:53 AM EDT [employer] form was left provider filled it out call to patient letting her know we need her to come in to fill out a release of information form before this paper can be released. documented in this encounter Plan of Treatment Upcoming Encounters Date Type Department Care Team (Late st Contact Info) Description 06/02/2025 8:00 AM EST Telemedicine Bariatric Surgery - [address] [phone] Josefina Ryan, RD [address] [phone] 06/04/2025 2:00 PM EST Office Visit Adult Medicine [address] [phone] Rhona Chris PA [address] [place] [address] 06/17/2025 1:30 PM EST Office Visit Adult Medicine [address] [phone] Rhona Chris PA 305 [place] [address] 06/19/2025 1:30 PM EST Ancillary Procedure [facility] Cardiology Associates - [facility] 101 300 [facility] 101 [place] [phone] 06/25/2025 1:20 PM EST Office Visit Gastroenterology - [address] [place] [address] Karlie Kim, JEREMY 230 [place] [phone] 07/09/2025 1:00 PM EST Consult Vascular Surgery - [place] 300 [facility] [address] [place] [address] Camille Mcgill PA 230 [place] [address] 08/14/2025 2:00 PM EST Office Visit Adult [address] [phone] Chuck Casillas MD 444 [place], [place] 10/10/2025 1:10 PM EDT Office Visit [facility] Cardiology Associates - [facility] Center [address] [place] [address] Viola Gonzalez, JEREMY [address] [place] [address] Dr [address] [place] [address] documented as of this encounter Visit Diagnoses Not on filedocumented in this encounter Additional Health Concerns Infection Onset Date Last Indicated Resolved Time Enteropathogenic E. coli (EPEC) 02/23/2025 5 Assessment Noted Time PHQ-9 Depression Total Score: 11 025 10:06 AM EDT documented as of this encounter Care Teams Clinical Material Handler Relationship Specialty Start Date End Date Chuck Casillas MD 2040 [facility] [place] PCP - General Internal Medicine 02/18/22 documented as of this encounter
--- OUTSIDE RECORDS SUMMARY | 2025-05-30 13:55 | XMS_ITS | Clinical Summary ---
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 024 Active acetaZOLAMIDE (DIAMOX) 500 mg 12 hr capsule TAKE 4 CAPSULES BY MOUTH TWICE A DAY 024 Active diclofenac sodium 3 % gel Apply 4 g topically 3 times daily as needed (knee pain). 024 Active CANE MISC MISC. DEVICES (CANE/T-HANDLE) MISC: 1 Units by Does not apply route daily. - Does not apply 021 Active blood pressure test kit-large kit BLOOD PRESSURE MONITORING (B-D ASSURE BPM/AUTO ARM CUFF) MISC: 1 Units by Does not apply route daily. - Does not apply Active sucralfate (Carafate) 1 gram tabletIndications :Epigastric pain Take 1 tablet (1 g total) by mouth 4 (four) times a day (before meals and nightly). 120 each 025 2025 Active albuterol 2.5 mg /3 mL (0.083 %) nebulizer solution Take 3 mL (2.5 mg total) by nebulization every 4 (four) hours if needed for wheezing. 75 mL 5 Active fluticasone propionate (FLONASE) 50 mcg/actuation nasal spray INSTILL 2 SPRAYS IN EACH NOSTRIL ONCE TO TWICE DAILY 32 mL 1 Active famotidine (PEPCID) 40 mg tablet Take 1 tablet (40 mg total) by mouth 2 (two) times a day. 60 each 025 2025 Active metoprolol succinate (TOPROL-XL) 25 mg 24 hr tabletIndications :Chronic coronary microvascular dysfunction Take 1 tablet (25 mg total) by mouth 1 (one) time each day. 90 tablet Active simvastatin (ZOCOR) 10 mg tabletIndications :Mixed hyperlipidemia Take 1 tablet (10 mg total) by mouth at bedtime. 90 each Active mirtazapine (REMERON) 7.5 mg tabletIndications :Insomnia, unspecified Take 1 tablet (7.5 mg total) by mouth at bedtime. at bedtime. 90 each 025 2024 Active hydrOXYzine HCL (ATARAX) 25 mg tablet Take 1 tablet (25 mg total) by mouth at bedtime. 90 each 025 2025 Active magnesium oxide 420 mg tablet Take 1 tablet by mouth 1 (one) time each day. 90 each 025 2025 Active potassium chloride (KLOR-CON M20) 20 mEq CR tablet Take 2 tablets (40 mEq total) by mouth 1 (one) time each day. Tablet may be swallowed whole (do not crush/chew/suck on) OR broken in half and each half swallowed separately OR dissolved (whole tablet) in ~4 ounces of water (allow ~2 minutes to dissolve, stir well and administer immediately). 180 each 025 2025 Active vitamin A 3,000 mcg (10,000 unit) capsule TAKE 1 CAPSULE BY MOUTH 1 TIME EACH DAY. 90 capsule Active topiramate (TOPAMAX) 200 mg tablet Take 1 tablet (200 mg total) by mouth 1 (one) time each day. 90 each 025 2024 Active albuterol HFA (PROAIR HFA ; PROVENTIL HFA ; VENTOLIN HFA) 90 mcg/actuation inhaler Inhale 2 Puffs into the lungs every 6 hours as needed for Cough or Wheezing. 6.7 g Active apixaban (ELIQUIS) 5 mg tabletIndications :Acute pulmonary embolism without acute cor pulmonale, unspecified pulmonary embolism type (CMS/HCC V24, CMS/HCC V28),Acute deep vein thrombosis (DVT) of calf muscle vein of both lower extremities (CMS/HCC V24, CMS/HCC V28) Take 1 tablet (5 mg total) by mouth 2 (two) times a day. 180 each 025 2024 Active torsemide 40 mg tabletIndications :Venous insufficiency Take 40 mg by mouth 1 (one) time each day. 90 tablet 1 025 2024 Active acetaminophen (Tylenol 8 Hour) 650 mg 8 hr tablet Take 1 tablet (650 mg total) by mouth 2 (two) times a day if needed for moderate pain. Do not crush, chew, or split. 180 tablet 025 2024 Active pantoprazole (PROTONIX) 40 mg EC tablet TAKE 1 TABLET BY MOUTH 2 TIMES DAILY FOR 90 DAYS. 180 tablet Active gabapentin (Neurontin) 400 mg capsule Take 1 capsule (400 mg total) by mouth 2 (two) times a day. 180 capsule 1 Active multivitamin tablet Take 1 tablet by mouth 1 (one) time each day. Multiple Vitamin (multivitamin) capsule: Take 1 Capsule by mouth daily for 360 days. - Oral 90 each 1 Active traMADoL (ULTRAM) 50 mg tablet Take 1 tablet (50 mg total) by mouth 2 (two) times a day if needed for severe pain. Max Daily Amount: 100 mg 56 tablet Active morphine (MS CONTIN) 15 mg 12 hr tabletIndications :Chronic pain syndrome Take 1 tablet (15 mg total) by mouth 2 (two) times a day. Do not crush, chew, or split. Max Daily Amount: 30 mg 56 tablet Active Vitamin D3 25 mcg (1,000 unit) tablet TAKE 2 TABLETS BY MOUTH EVERY DAY 180 tablet 1 Active ciclopirox (PENLAC) 8 % solution Apply topically at bedtime. Apply over nail and surrounding skin. Apply daily over previous coat. After seven (7) days, may remove with alcohol and continue cycle. 6.6 mL 2025 Active baclofen (LIORESAL) 10 mg tablet TAKE 1 TABLET BY MOUTH 2 TIMES A DAY IF NEEDED FOR MUSCLE SPASMS. 180 tablet Active nutritional drink (Ensure High Protein) liquid TAKE 118 ML BY MOUTH 2 (TWO) TIMES A DAY. 60 each Active traZODone (DESYREL) 50 mg tablet Take 1 tablet (50 mg total) by mouth at bedtime. 90 tablet 1 2025 Active iron asp [id number] ucc (Niferex, ferrous asparto glyc,) 75 mg iron-175 mg-1,700 mcgDFE tablet Take 1 tablet by mouth 1 (one) time each day. 90 tablet 1 2025 Active multivitamin tablet Take 1 tablet by mouth 1 (one) time each day. Multiple Vitamin (multivitamin) capsule: Take 1 Capsule by mouth daily for 360 days. - Oral 90 each 1 025 2024 Discontinued(R eorder) Vitamin D3 25 mcg (1,000 unit) tablet TAKE 2 TABLETS BY MOUTH EVERY DAY 180 tablet 1 2024 Discontinued traZODone (DESYREL) 50 mg tablet Take 1 tablet (50 mg total) by mouth at bedtime. 90 tablet 1 025 2024 Discontinued(R eorder) iron asp [id number] ucc (Niferex, ferrous asparto glyc,) 75 mg iron-175 mg-1,700 mcgDFE tablet Take 1 tablet by mouth 1 (one) time each day. 90 tablet 1 025 2024 Discontinued(R eorder) dicyclomine (BENTYL) 10 mg capsule TAKE 1 CAPSULE (10 MG TOTAL) BY MOUTH 4 (FOUR) TIMES A DAY IF NEEDED (CRAMPS). 120 capsule 4 025 2024 Discontinued(T herapy completed) traMADoL (ULTRAM) 50 mg tablet Take 1 tablet (50 mg total) by mouth 2 (two) times a day if needed for severe pain. Max Daily Amount: 100 mg 56 tablet 025 2024 Discontinued(R eorder) morphine (MS CONTIN) 15 mg 12 hr tabletIndications :Chronic pain syndrome Take 1 tablet (15 mg total) by mouth 2 (two) times a day. Do not crush, chew, or split. Max Daily Amount: 30 mg 56 tablet 2024 Discontinued(R eorder) calcium citrate-vitamin D3 250 mg-5 mcg (200 unit) tablet Take 1 tablet by mouth 1 (one) time each day. 90 each 1 025 2024 tirzepatide, weight loss, (Zepbound) 2.5 mg/0.5 mL injectionIndicati ons:Class 2 obesity due to excess calories with body mass index (BMI) of 36.0 to 36.9 in adult, unspecified whether serious comorbidity present Inject 0.5 mL (2.5 mg total) under the skin every 7 (seven) days for 4 doses. 2 mL 025 2024 baclofen (LIORESAL) 10 mg tablet Take 1 tablet (10 mg total) by mouth 2 (two) times a day if needed for muscle spasms. 60 tablet 025 2024 Discontinued Active Problems Problem Noted Date Diagnosed Date Hypocalcemia 04/11/2025 Neuropathy 03/14/2025 Assessment & Plan (03/14/2025 6:15 PM EDT): Continue gabapentin 300mg daily Orders: Vitamin B6; Future Vitamin B1; Future Hypoalbuminemia 02/24/2025 Assessment & Plan (03/14/2025 6:15 PM EDT): Referred to nutrition Orders: Ambulatory referral to Nutrition Services; Future E. coli gastroenteritis 02/24/2025 Assessment & Plan (03/14/2025 6:15 PM EDT): Still with diarrhea Will treat with azithromycin for 3 days Continue dicyclomine 10mg PRN for abdominal cramping Orders: azithromycin (ZITHROMAX) 500 mg tablet; Take 1 tablet (500 mg total) by mouth 1 (one) time each day for 3 days. Swelling of both lower extremities 02/22/2025 Tremors of nervous system 02/10/2025 Assessment & Plan (02/10/2025 4:40 PM EDT): Referred to neurology for further evaluation Orders: Ambulatory referral to Neurology; Future Normocytic anemia 02/08/2025 Assessment & Plan (03/14/2025 6:15 PM EDT): Continue niferex daily Referred to hematology and GI Orders: Ambulatory referral to Hematology; Future Ambulatory referral to Gastroenterology; Future Assessment & Plan (02/10/2025 4:40 PM EDT): Noted on discharge labs. Anemia panel is ordered Orders: CBC and differential; Future Ferritin; Future Iron and TIBC; Future Vitamin B12; Future Folate; Future Chronic pain syndrome 01/06/2025 Assessment & Plan (03/14/2025 6:15 PM EDT): Continue CSC for morphine 15mg BID and tramadol 50mg BID per contract UDS is up to date(done 05/01/24) Assessment & Plan (02/10/2025 4:40 PM EDT): Resume morphine 15mg BID per contract Tramadol 50mg is decreased to BID (56 tabs) REMAIN OFF TIZANIDINE We did discuss that opioids can increase her risk for respiratory depression however she has chronic pain. The tramadol is decreased to help mitigate this MME is 40 Orders: morphine (MS CONTIN) 15 mg 12 hr tablet; Take 1 tablet (15 mg total) by mouth 2 (two) times a day. Do not crush, chew, or split. Max Daily Amount: 30 mg Assessment & Plan (01/06/2025 8:18 AM EDT): Requesting Tylenol to replace the Celebrex which was discontinued. This is sent. Continue on [facility] for morphine ER 15 mg BID prn, tramadol 50 mg every 8 hours Last UDS was 05/01/24 and appropriate Orders: acetaminophen (Tylenol 8 Hour) 650 mg 8 hr tablet; Take 1 tablet (650 mg total) by mouth every 8 (eight) hours if needed for mild pain for up to 10 days. Do not crush, chew, or split. Acute deep vein thrombosis ( DVT) of calf muscle vein of both lower extremities (CMS/[facility] V24, CMS/[facility] V28) 01/06/2025 Assessment & Plan (03/14/2025 6:15 PM EDT): Missed appt with hematology because she was hospitalized Another referral is placed Continue eliquis 5mg BID Orders: Ambulatory referral to Hematology; Future Assessment & Plan (02/10/2025 4:40 PM EDT): Continue eliquis 5mg BID Assessment & Plan (01/06/2025 8:18 AM EDT): As above Orders: Ambulatory referral to Hematology; Future apixaban (ELIQUIS) 5 mg tablet; Take 1 tablet (5 mg total) by mouth 2 (two) times a day. Acute pulmonary embolism (CMS/[facility] V24, CMS/[facility] V 28) 12/26/2024 Assessment & Plan (03/14/2025 6:15 PM EDT): Hx of PE in November 2024 Continue eliquis 5mg BID F/u with Hematology Orders: Ambulatory referral to Hematology; Future Assessment & Plan (02/10/2025 4:40 PM EDT): Continue eliquis 5mg BID Assessment & Plan (01/06/2025 8:18 AM EDT): Shortness of breath is improved. She will continue with the Eliquis--> advised to start 5 mg twice daily and stop taking 10 mg twice daily Stop aspirin Referred to hematology Orders: Ambulatory referral to Hematology; Future apixaban (ELIQUIS) 5 mg tablet; Take 1 tablet (5 mg total) by mouth 2 (two) times a day. Arthritis 06/19/2024 Carpal tunnel syndrome 06/19/2024 Depression 06/19/2024 Myofascial pain 06/19/2024 Obstructive sleep apnea syndrome 06/19/2024 Assessment & Plan (03/14/2025 6:15 PM EDT): Referred to sleep medicine for treatment Orders: Ambulatory referral to Sleep Medicine; Future Assessment & Plan (01/06/2025 8:18 AM EDT): Referred to sleep medicine. Has hx but is per notes from pulmonology, last sleep study in 2019 was negative She has significant sleeping issues and is referred to medicine Orders: Ambulatory referral to Sleep Medicine; Future Obesity, Class II, BMI 35-39.9 06/19/2024 HSV (herpes simplex virus) anogenital infection 05/07/2024 HLD (hyperlipidemia) 05/07/2024 Assessment & Plan (03/14/2025 6:15 PM EDT): Continue simvastatin 10mg nightly Assessment & Plan (02/10/2025 4:40 PM EDT): Continue simvastatin 10mg nightly Assessment & Plan (01/06/2025 8:18 AM EDT): Continue simvastatin Orders: simvastatin (ZOCOR) 10 mg tablet; Take 1 tablet (10 mg total) by mouth at bedtime. Osteoarthritis of right ankle and foot Coronary artery disease 01/15/2024 Overview (05/07/2024): Last Assessment & Plan: The patient has a history of atypical chest discomfort. She underwent a nuclear stress test which showed a small in size and mild intensity reversible perfusion defect in the mid anterior lateral wall, apical lateral wall and apex. The patient continues to experience episodes of chest discomfort which have improved since starting isosorbide mononitrate, however are still present. Given her risk factors for coronary artery disease including obesity, hypertension, and hyperlipidemia, we discussed the next step would be for her to undergo a left heart catheterization at [facility] with Dr. Mercedes to evaluate for obstructive coronary artery disease as a cause of her symptoms and abnormal stress test. Risks and benefits of coronary angiogram discussed with patient including the increased risk for bleeding and the less than 0.1% risk for ND, stroke or . The patient understands and wishes to proceed with coronary angiogram. All questions answered. Patient advised to refrain from exertional activites and to seek emergency medical attention if he develops chest pain or dyspnea which does not resolve with rest or sublingual nitroglycerin. Will also initiate amlodipine 2.5 mg orally daily as an additional antianginal. She will continue her current dose isosorbide mononitrate, statin and aspirin. Assessment & Plan (02/10/2025 4:40 PM EDT): Continue aspirin 81mg daily and simvastatin Assessment & Plan (01/06/2025 8:18 AM EDT): Continue metoprolol and Imdur. Stop aspirin while on Eliquis Orders: metoprolol succinate (TOPROL-XL) 25 mg 24 hr tablet; Take 1 tablet (25 mg total) by mouth 1 (one) time each day. isosorbide mononitrate (IMDUR) 30 mg 24 hr tablet; Take 1 tablet (30 mg total) by mouth 1 (one) time each day. : Take 1 Tablet by mouth daily. - Oral Osteoarthritis of lumbar spine 09/01/2023 Assessment & Plan (02/10/2025 4:40 PM EDT): Dyspnea on exertion 06/07/2023 Overview (05/07/2024): Last Assessment & Plan: Multifactorial dyspnea. Advised the patient to get enrolled in the exercise weight loss program and exercise regularly. Continue using the albuterol as needed. Continue following with PCP. Constipation 04/24/2023 Venous insufficiency 04/13/2023 Assessment & Plan (03/14/2025 6:15 PM EDT): Will check venous insufficiency ultrasound The lasix is not helping her leg swelling Will switch to torsemide 40mg daily Continue Kdur 20meQ daily Return in one week for potassium check Orders: torsemide 40 mg tablet; Take 40 mg by mouth 1 (one) time each day. Prealbumin; Future Vascular US duplex lower extremity venous insufficiency bilateral; Future Assessment & Plan (02/10/2025 4:40 PM EDT): Resume lasix 40mg daily. Assessment & Plan (01/06/2025 8:18 AM EDT): Continue lasix 40mg daily Calcific Achilles tendinitis 04/13/2023 Renal cyst 03/20/2023 Insomnia 09/19/2022 Chronic midline low back pain without sciatica 0 09/19/2022 Assessment & Plan (02/10/2025 4:40 PM EDT): As above Continue gabapentin 300mg PRN Advised to use OTC magnesium as needed for muscle spasms Assessment & Plan (01/06/2025 8:18 AM EDT): As above Orders: acetaminophen (Tylenol 8 Hour) 650 mg 8 hr tablet; Take 1 tablet (650 mg total) by mouth every 8 (eight) hours if needed for mild pain for up to 10 days. Do not crush, chew, or split. Hiatal hernia with gastroesophageal reflux 06/22 Right shoulder tendinitis 02/26/2018 Bilateral primary osteoarthritis of knee 018 Assessment & Plan (01/06/2025 8:18 AM EDT): Orders: acetaminophen (Tylenol 8 Hour) 650 mg 8 hr tablet; Take 1 tablet (650 mg total) by mouth every 8 (eight) hours if needed for mild pain for up to 10 days. Do not crush, chew, or split. Pituitary microadenoma with hyperprolactinemia ([facility] V24, [facility] V28) 12/22/2015 Galactorrhea in female 12/22/2015 Asthma 01/14/2014 Overview (05/07/2024): Last Assessment & Plan: Asthma is mild persisting or mild intermittent Discontinue Flovent Continue with albuterol as needed Continue with PCP. Vitamin D deficiency 05/16/2012 Assessment & Plan (02/10/2025 4:40 PM EDT): Resume vitamin D 2000U daily History of substance abuse ([facility] V24, [facility] V28) 02/25/2008 Overview (05/07/2024): cocaine Pseudotumor cerebri 12/26/2007 Overview (01/06/2025): Buck Olvera [employer] Assessment & Plan (02/10/2025 4:40 PM EDT): Continue acetazolamide daily and follow up with neurology Assessment & Plan (01/06/2025 8:18 AM EDT): Continue neurology follow up Continue Acetazolamide Migraine 12/26/2007 Assessment & Plan (02/10/2025 4:40 PM EDT): Continue topiramate 200 mg BID and continue neurology follow up Assessment & Plan (01/06/2025 8:18 AM EDT): Continue topiramate 200 mg BID and Fioricet prn. Hypokalemia 12/26/2007 Overview (05/07/2024): CHORNIC PER PT Assessment & Plan (03/14/2025 6:15 PM EDT): Continue kdur 20meQ daily Orders: Basic metabolic panel; Future Assessment & Plan (02/10/2025 4:40 PM EDT): Continue Kdur 10meQ daily. (HOLD while on BACTRIM) Assessment & Plan (01/06/2025 8:18 AM EDT): Continue potassium 40meQ BID She had some issues with hypokalemia in the hospital which was replaced. Will repeat BMP Orders: Basic metabolic panel; Future HTN (hypertension), benign 12/26/2007 Overview (05/07/2024): Last Assessment & Plan: Patient's blood pressure is acceptable today. Will initiate amlodipine 2.5 mg orally daily to further titrate antianginals as outlined below. Assessment & Plan (03/14/2025 6:15 PM EDT): BP is well controlled. Continue metoprolol 25mg daily Assessment & Plan (02/10/2025 4:40 PM EDT): Continue metoprolol 25mg daily . No longer on lisinopril or imdur. BP is well controlled at 123/86. Assessment & Plan (01/06/2025 8:18 AM EDT): Follow-up in 1 month for blood pressure check. Continue lisinopril 40 mg daily, metoprolol 25 mg daily Hydrochlorothiazide was discontinued while she was in the hospital GERD (gastroesophageal reflux disease) 8 Assessment & Plan (03/14/2025 6:15 PM EDT): Continue pantoprazole 40mg BID and famotidine 40mg BID F/u with GI Assessment & Plan (02/10/2025 4:40 PM EDT): Continue famotidine 40mg BID and pantoprazole 40mg BID. Continue reglan as needed Fibromyalgia 12/26/2007 Assessment & Plan (02/10/2025 4:40 PM EDT): As above Assessment & Plan (01/06/2025 8:18 AM EDT): As above Resolved Problems Problem Noted Date Diagnosed Date Resolved Date Acute hypoxemic respiratory failure (CMS/HCC V24, CMS/HCC V28) 01/24/2025 02/08/2025 Chest pain, unspecified type 01/24/2025 02/08/2025 Bilateral lower extremity edema 12/26/2024 02/08/2025 Urinary and bowel incontinence 07/11/2024 03/14/2025 Chest pain 06/19/2024 03/14/2025 Overview (06/19/2024): Admit and negative w/ui for cAD Polysubstance dependence ([facility] V24, [facility] V28) 06/19/2024 02/08/2025 Rhabdomyolysis 06/19/2024 01/06/2025 Morbid obesity ([facility] V24, [facility] V28) 06/19/2024 12/12/2024 Morbid obesity with BMI of 4 0.0-44.9, adult ([facility] V24, [facility] V28) 05/07/2024 12/12/2024 Major depression in remission ([facility] V24) 12/26/2007 01/06/2025 Overview (05/07/2024): [facility] ZOLOFT,AMBIEN AND CLONAZEPAM FROM DR BEEBE Edema 12/26/2007 01/06/2025 Overview (05/07/2024): Last Assessment & Plan: The patient has a history of lower extremity edema which has been present for more than 1 year. The lower extremity edema is more pronounced in the right leg. The patient is on medical therapy with furosemide and acetazolamide. The patient had a recent echocardiogram that showed a normal LVEF, indeterminate LV diastolic function, and only mild aortic valve insufficiency. She may have HFpEF given the indeterminate LV diastolic function on the echo and her persistent lower extremity edema. Will order a BNP for further evaluation. In the meantime, we will continue her current diuretic therapy. On the other hand, the patient could also have lower extremity venous insufficiency which could also result in the presence of lower extremity edema. Will order lower extremity venous insufficiency study. Encounters Date Type Department Care Team Description 05/27/2025 1:00 PM EDT Telemedicine Bariatric Surgery - [address] [id number] Bariatric surgery status (Primary Dx) 05/27/2025 Results Follow-Up [address] [phone] Chuck Casillas MD 05/27/[address] [phone] Chuck Casillas MD 05/26/2025 3:00 PM EDT Ancillary Procedure [facility] [address] [facility] [address] [place] [address] Venous insufficiency; Leg swelling 05/23/[address] [phone] Rhona Chris PA 05/22/2025 Results Follow-Up [address] [phone] Rhona Chris PA 05/21/2025 1:30 PM EDT Office Visit [address] [phone] Rhona Chris PA Facial edema (Primary Dx); Chronic midline low back pain without sciatica; Mild intermittent asthma without complication; Obstructive sleep apnea syndrome; Tremors of nervous system; Obesity, Class II, BMI 35-39.9 05/21/2025 Telephone Adult Medicine [address] [phone] Chuck Casillas MD 05/20/2025 Telephone Adult Medicine [address] [phone] Chuck Casillas MD 05/13/2025 Telephone Adult [address] [phone] Chuck Casillas MD 05/06/2025 Nurse Triage [address] [phone] Chuck Casillas MD 05/01/2025 Telephone Bariatric Surgery [address] [phone] Jacques Hawkins MD 04/30/2025 2:00 PM EDT Office Visit [address] [phone] Rhona Chris PA Chronic pain syndrome (Primary Dx); Fibromyalgia; Neuropathy; Osteoarthritis of lumbar spine with myelopathy; Hypocalcemia 04/28/2025 2:30 PM EDT Office Visit Bariatric Surgery [address] [phone] Jacques Hawkins MD Class 2 obesity due to excess calories with body mass index (BMI) of 36.0 to 36.9 in adult, unspecified whether serious comorbidity present (Primary Dx) 04/10/2025 2:15 PM EDT Office Visit [address] [phone] Jacques Hawkins MD Intestinal malabsorption following gastrectomy (Primary Dx); Class 1 obesity due to excess calories with body mass index (BMI) of 34.0 to 34.9 in adult, unspecified whether serious comorbidity present 04/09/2025 1:00 PM EDT Office Visit [facility] Hematology Oncology [address] [place] [phone] Bertram Todd MD Leg DVT (deep venous thromboembolism), chronic, left (CMS/HCC V24, CMS/HCC V28); Acute pulmonary embolism without acute cor pulmonale, unspecified pulmonary embolism type (CMS/HCC V24, CMS/HCC V28); Normocytic anemia 03/28/2025 Telephone Adult [address] [phone] Rae Norwood MA 03/25/2025 2:45 PM EDT Office Visit Bariatric Surgery - [place] [address] [facility] [address] [place] [address] Kyara Womack PA Hypoalbuminemia (Primary Dx); Bariatric surgery status; Intestinal malabsorption following gastrectomy; Class 2 severe obesity due to excess calories with serious comorbidity and body mass index (BMI) of 35.0 to 35.9 in adult ([facility] V24, [facility] V28); E. coli gastroenteritis 03/21/2025 Telephone Adult Medicine [address] [phone] Chuck Casillas MD 03/19/2025 Telephone Adult [address] [phone] Debbi Andersen RN 03/14/2025 1:00 PM EDT Office Visit Adult [address] [phone] Chuck Casillas MD Hospital discharge follow-up (Primary Dx); Leg DVT (deep venous thromboembolism), chronic, left ([facility] V24, [facility] V28); Acute pulmonary embolism without acute cor pulmonale, unspecified pulmonary embolism type ([facility] V24, [facility] V28); Chronic pain syndrome; Normocytic anemia; Venous insufficiency; Leg swelling; Hypokalemia; Neuropathy; Elevated brain natriuretic peptide (BNP) level; Gastroesophageal reflux disease without esophagitis; E. coli gastroenteritis; Obstructive sleep apnea syndrome; Mixed hyperlipidemia; Hypoalbuminemia; HTN (hypertension), benign 03/11/2025 Telephone Adult [address] [phone] Chuck Casillas MD 03/04/2025 6:48 PM EDT - 03/04/2025 11:03 PM EDT Emergency [facility] Emergency [address] [place] [address] Kyara Richard MD Fall, initial encounter (Primary Dx); Edema, unspecified type Discharge Disposition: Home or Self Care 03/04/2025 Nurse Triage Adult Medicine [address] [phone] Chuck Casillas MD 02/27/2025 Telephone [facility] Radiation Oncology [address] [place] [address] Camille Barraza, GERALD from Last 3 Months Immunizations Immunization Administration Dates Next Due Influenza Quadravalent, MDCK , 0.5ml, with preservative (Flucelvax) 6mo and older 04/10/2020 Influenza trivalent, with pr eservative (Fluzone; Afluria) 6mo and older 05/14/2013,05/14/2012,05/19/2008 Influenza, Unspecified 04/07/2020 MMR, measles mumps and rubel la Live (Priorix; M-M-R II) 12mo and older 04/13/2011 Moderna SARS-CoV-2 COVID-19, mRNA, LNP-S, preservative free 11/23/2020,10/24/2020 Pneumococcal conjugate 20 va lent (Prevnar 20, PCV 20) 2mo and older 02/07/2025 Pneumococcal polysaccharide 23 valent (Pneumovax 23) 2yo and older 01/14/2014 Tdap Tetanus diptheria acell ular pertussis (Boostrix; Adacel) 7yo and older 02/07/2025,11/30/2009 Zoster recombinant (Shingrix ) 19yo and older 04/10/2020 Surgical History Surgery Date Site/Laterality Comments SECTION PROCEDURE: SD DELIVERY ONLY HERNIA REPAIR PROCEDURE: HISTORICAL HERNIA REPAIR/ING GASTRIC BYPASS PROCEDURE: GASTRIC BYPASS FOR OBESIT HYSTERECTOMY PROCEDURE: HISTORICAL HYSTERECTOMY; COMMENT: ?2006. MICHELLE for fibroids. adenxae preserved per 's notes. CARPAL TUNNEL RELEASE PROCEDURE: HISTORICAL CARPAL TUNNEL REL CHOLECYSTECTOMY PROCEDURE: LAPAROSCOPIC CHOLECYSTECT; COMMENT: 2011 COLONOSCOPY 05/12/2020 PROCEDURE: HISTORICAL COLONOSCOPY; COMMENT: tubular adenoma UPPER GASTROINTESTINAL ENDOSCOPY 05/12/2020 PROCEDURE: UPPER GI ENDOSCOPY/EXAM; COMMENT: hiatal hernia Medical History Medical History Date Comments HSV (herpes simplex virus) a nogenital infection DX:HSV (herpes simplex virus ) anogenital infection Asthma 01/14/2014 DX:Asthma Bilateral primary osteoarthr itis of knee 02/26/2018 DX:Bilateral primary osteoar thritis of knee Fibromyalgia 12/26/2007 DX:Fibromyalgia Galactorrhea in female 12/22/2015 DX:Galact orrhea in female GERD (gastroesophageal reflu x disease) 12/26/2007 DX:GERD (gastroesophageal re flux disease) History of bariatric surgery 01/02/2013 DX: History of bariatric surgery; COMMENT: History of substance abuse ( [facility], [facility] V28) 02/25/2008 DX:History of substance abus e ([facility]); COMMENT: cocaine HTN (hypertension), benign 12/26/2007 DX:HT N (hypertension), benign Hypokalemia 12/26/2007 DX:Hypokalemia; COMMENT: CHORNIC PER PT Lung nodule, multiple 04/13/2018 DX:Lung no dule, multiple Major depression in remissio n ([facility] [place]24) 12/26/2007 DX:Major depression in remis dorene ([facility]); COMMENT: [facility] ZOLOFT,AMBIEN AND CLONAZEPAM FROM DR BEEBE Migraine 12/26/2007 DX:Migraine Morbid obesity with body mas s index (BMI) of 50.0 to 59.9 in adult ([facility] [place], [facility] V28) 02/26/2018 DX:Morbid obesity with body mass index (BMI) of 50.0 to 59.9 in adult ([facility]) ARPITA (obstructive sleep apnea) 09/18/2008 DX :ARPITA (obstructive sleep apnea); COMMENT: Not been using CPAP machine Pituitary microadenoma with hyperprolactinemia ([facility], [facility] V28) 12/22/2015 DX:Pituitary microadenoma wi th hyperprolactinemia ([facility]) Pseudotumor cerebri 12/26/2007 DX:Pseudotum or cerebri; COMMENT: HAS SEEN NEURO-BUT DOES NOT REMEMBER NAME Right shoulder tendinitis 02/26/2018 DX:Rig ht shoulder tendinitis Vitamin D deficiency 05/16/2012 DX:Vitamin D deficiency Covid-19 11/09/2020 DX:COVID-19 S/P gastric surgery DX:S/P gastr ic surgery Rhabdomyolysis 06/19/2024 Edema 12/26/2007 Last Assessment & Plan: The patient has a history of lower extremity edema which has been present for more than 1 year. The lower extremity edema is more pronounced in the right leg. The patient is on medical therapy with furosemide and acetazolamide. The patient had a recent echocardiogram that showed a normal LVEF, indeterminate LV diastolic function, and only mild aortic valve ins Acute hypoxemic respiratory failure (CMS/HCC V24, CMS/HCC V28) 01/24/2025 Urinary and bowel incontinence 07/11/2024 Chest pain 06/19/2024 Admit and negati ve w/ui for cAD Family History Medical History Relation Name Comments Mental illness Brother Coronary artery disease Father Diabetes Father Hypertension Father Diabetes Mother Hypertension Mother Hypertension Sister Breast cancer Neg Hx Colon cancer Neg Hx Ovarian cancer Neg Hx Relation Name Status Comments Brother Alive 2, Father Mother Sister Alive 1,COPD Social History Tobacco Use Types Packs/Day Years [...] for your loved ones. For example, children's librarian or elderly care for an older adult? [...] Orientation Straight 10/22/2024 12 :49 PM EDT Obstetrics History Last Filed Vital Signs Vital Sign Reading Time Taken Comments Blood Pressure 123/80 05/21/2025 1:17 PM EDT Pulse 68 05/21/2025 1:17 PM EDT Temperature 36.9 C (98.4 F) 05/21/2025 1:17 PM EDT Respiratory Rate 14 05/21/2025 1:17 PM EDT Oxygen Saturation 100% 04/09/2025 1:04 PM EDT Inhaled Oxygen Concentration - - Weight 81.6 kg (180 lb) 05/27/2025 1:00 PM EDT Height 152.4 cm (5') 05/21/2025 1:17 PM EDT Body Mass Index 35.15 05/21/2025 1:17 PM EDT Plan of Treatment Upcoming Encounters Date Type Department Care Team (Late st Contact Info) Description 06/02/2025 8:00 AM EST Telemedicine Bariatric Surgery - [place] [address] [facility] [address] [place] [phone] Josefina Ryan, RD [address] [facility] [address] [place] [phone] 06/04/2025 2:00 PM EST Office Visit Adult Medicine [address] [phone] Rhona Chris, MIKE [address] [place] [address] 06/17/2025 1:30 PM EST Office Visit Adult Medicine [address] [phone] Rhona Chris PA [address] [place] [address] 06/19/2025 1:30 PM EST Ancillary Procedure [facility] [address] [facility] [address] [place] [phone] 06/25/2025 1:20 PM EST Office Visit Gastroenterology - [address] [facility] 299 [facility] [address] [place] [phone] Karlie Kim, JEREMY [address] [place] [phone] 07/09/2025 1:00 PM EST Consult Vascular Surgery - [place] [address] [facility] [address] [place] [phone] Camille Mcglil PA [address] [place] [phone] 08/14/2025 2:00 PM EST Office Visit Adult Medicine [address] [phone] Chuck Casillas MD [address] [place] [address] 10/10/2025 1:10 PM EDT Office Visit [facility] [address] [place] [address] Viola Gonzalez NP [address] [place] [address] [place] [address] Health Maintenance Due Date Last Done Comments Hepatitis A Vaccines (1 of 2 - Risk 2-dose series) 1984 Hepatitis B Vaccines (1 of 3 - 19+ 3-dose series) 1984 RSV Immunization Adult Patients (1 - Risk 50-74 years 1-dose series) 11/03/2015 Zoster Vaccines (2 of 2) 06/05/2020 04/10/2020 Breast Cancer Screening 02/19/2024 02/18/2022, 05/18 COVID-19 Vaccine ( season) 2025 11/23/2020, 10/24/2020 Colorectal Cancer Screening: Colonoscopy 05/12/2025 05/12/2020 Social Influencers of Health Screening 02/24/2026 02/24/2025 Influenza Vaccine (#1) 2026 , 04/07/2020, 05/14/2013, Additional history exists Postponed from 03/31/2025 (Patient Refused) Hypertension/CHF/CAD Annual BMP Blood Test 05/21/2026 05/21/2025, 04/10/2025, 03/14/2025, Additional history exists Cholesterol Screening (Lipid Panel) 02/27/2029 02/28/2024, 02/28/2024 DTaP,Tdap,and Td Vaccines (3 - Td or Tdap) 02/07/2035 02/07/2025, 11/30/2009 HIV Screening Completed 11/11/2008 Hepatitis C Screening Completed 11/11/2008 MMR Vaccines Aged Out 04/13/2011 No longer eligi ble based on patient's age to complete this topic Depression Screening Completed 12/05/2024, 09/18/19 24 Pneumococcal Vaccine: 50+ Years Completed 02/07/2025, 01/14/2014, 07/06/2007 HIB Vaccines Aged Out No longer eligi ble based on patient's age to complete this topic HPV Vaccines Aged Out No longer eligi ble based on patient's age to complete this topic IPV Vaccines Aged Out No longer eligi ble based on patient's age to complete this topic Meningococcal ACWY Vaccine Aged Out N o longer eligible based on patient's age to complete this topic Meningococcal B Vaccine Aged Out No l onger eligible based on patient's age to complete this topic RSV Immunization Patients Under 20 months Aged Out No longer eligible based on patient's age to complete this topic Varicella Vaccines Aged Out No longer eligible based on patient's age to complete this topic Procedures Procedure Name Priority Date/Time Associated Diagnosis Comments VAS US DUPLEX LOWER EXT VENOUS INSUFFICIENCY BILATERAL Routine 05/26/2025 3:46 PM EDT Venous insufficiency Leg swelling CBC WITH AUTO DIFFERENTIAL Routine 05/21/2025 2:41 PM EDT Facial edema COMPREHENSIVE METABOLIC PANEL Routine 05/21/2025 2:41 PM EDT Facial edema CBC AND DIFFERENTIAL Routine 05/21/2025 2:41 PM EDT Facial edema THYROID STIMULATING HORMONE WITH REFLEX TO FREE T4 AND FREE T3 Routine 05/21/2025 2:41 PM EDT Facial edema VITAMIN B12 Routine 05/21/2025 2:41 PM EDT Facial edema B-TYPE NATRIURETIC PEPTIDE Routine 05/21/2025 2:41 PM EDT Facial edema BASIC METABOLIC PANEL Routine 04/10/2025 3:06 PM EDT Hypokalemia PREALBUMIN Routine 04/10/2025 3:06 PM EDT Intestinal malabsorption following gastrectomy VITAMIN D 25 HYDROXY Routine 04/10/2025 3:06 PM EDT Hypocalcemia GAMMA GLUTAMYL TRANSFERASE Routine 03/14/2025 2:06 PM EDT Elevated alkaline phosphatase level VITAMIN B6 Routine 03/14/2025 2:06 PM EDT Neuropathy VITAMIN B1 Routine 03/14/2025 2:06 PM EDT Neuropathy B-TYPE NATRIURETIC PEPTIDE Routine 03/14/2025 2:06 PM EDT Elevated brain natriuretic peptide (BNP) level COMPREHENSIVE METABOLIC PANEL Routine 03/14/2025 2:06 PM EDT Elevated brain natriuretic peptide (BNP) level PREALBUMIN Routine 03/14/2025 2:06 PM EDT Venous insufficiency XR CHEST 1 VIEW STAT 03/04/2025 9:[address] HEAD WO CONTRAST STAT 03/04/2025 9 :09 PM EDT B-TYPE NATRIURETIC PEPTIDE STAT 03/04/2025 8:02 PM EDT BASIC METABOLIC PANEL STAT 03/04/2025 8:02 PM EDT COMPLETE BLOOD COUNT STAT 03/04/2025 8:02 PM EDT TROPONIN I HIGH SENSITIVITY STAT 03/04/2025 8:02 PM EDT ECG 12-LEAD STAT 03/04/2025 7:59 PM EDT LIPID PANEL Routine 02/28/2024 HM DEPRESSION SCREENING Routine 09/18/2023 SCREENING MAMMOGRAPHY BI 2-VIEW BREAST INC CAD Routine 02/18/2022 2:08 PM EDT Nausea Diarrhea, unspecified Left lower quadrant pain Essential (primary) hypertension HM COLONOSCOPY Routine 05/12/2020 HEPATITIS C SCREENING Routine 11/11/2008 HIV SCREENING Routine 11/11/2008 from Last 3 Months or Most Recently Relevant to Health Maintenance Results * Vascular US duplex lower extremity [...] trendelenburg. Left saphenopopliteal junction was not identified. Multimedia Engineer Details A zambrano scale, color and doppler analysis ultrasound was performed. During the study longitudinal and transverse views were obtained. Continuous wave doppler and pulsed wave doppler was performed. Overall the study quality was technically difficult. Study was technically difficult due to: body habitus and diffuse subcutaneous edema. Chuck Casillas MD CV VASCULAR PROC EDURES Final Result * Thyroid stimulating hormone with reflex to free t4 and free t3 (05/21/2025 2:41 PM EDT) TSH 1.59 0.40 - 4.00 mcIU/mL LAB CHEMISTRY METHOD 05/21/2025 7:27 PM EDT [facility] Blood Venous blood specimen / Unknown Venipuncture / Unknown 05/21/2025 2:41 PM EDT 05/21/2025 2:41 PM EDT us Rhona MCKEON LAB BLOOD ORDERABLES Final Re sult [facility] [address] [place] [address], [place] [phone] * (ABNORMAL) CBC auto differential (05/21/2025 2:41 PM EDT) [facility] WBC 5.2 4.8 - 10.8 K/mcL LAB HEMETOLOGY METHOD 05/21/2025 4:35 PM EDT [facility] RBC 4.00 3.80 - 4.80 M/mcL LAB HEMETOLOGY METHOD 05/21/2025 4:35 PM [facility] Hemoglobin 10.5(L) 11.5 - 16.0 g/dL LAB HEMETOLOGY METHOD 05/21/2025 4:35 PM EDT [facility] Hematocrit 34.9(L) 35.0 - 47.0 % LAB HEMETOLOGY METHOD 05/21/2025 4:35 PM [facility] MCV 86.4 79.0 - 98.0 FL LAB HEMETOLOGY METHOD 05/21/2025 4:35 PM [facility] MCH 26.0(L) 27.0 - 32.0 pcg LAB HEMETOLOGY METHOD 05/21/2025 4:35 PM [facility] MCHC 30.1(L) 32.0 - 37.0 g/dL LAB HEMETOLOGY METHOD 05/21/2025 4:35 PM [facility] RDW 18.9(H) 11.0 - 15.0 % LAB HEMETOLOGY METHOD 05/21/2025 4:35 PM [facility] Platelets 220 130 - 400 K/mcL LAB HEMETOLOGY METHOD 05/21/2025 4:35 PM [facility] MPV 12.1(H) 7.0 - 11.0 FL LAB HEMETOLOGY METHOD 05/21/2025 4:35 PM [facility] NRBC 0.0 <1.0 % LAB HEMETOLOGY [facility]/21[facility]2025 4:[facility] NRBC Absolute 0.00 <0.10 K/[facility] LAB HEMETOLOGY METHOD 05/21/2025 4:35 PM EDT [facility] Neutrophils Relative 54.8 % LAB HEMETOLOGY METHOD 05/21/2025 4:35 PM EDT [facility] Lymphocytes Relative 35.1 % LAB HEMETOLOGY METHOD 05/21/2025 4:35 PM EDT [facility] Monocytes Relative 8.1 % LAB HEMETOLOGY METHOD 05/21/2025 4:35 PM EDT [facility] Eosinophils Relative 1.0 % LAB HEMETOLOGY METHOD 05/21/2025 4:35 PM EDT [facility] Basophils Relative 0.8 % LAB HEMETOLOGY METHOD 05/21/2025 4:[facility] Immature Granulocytes Relative 0.2 % LAB HEMETOLOGY METHOD 05/21/2025 4:35 PM EDT [facility] Neutrophils Absolute 2.84 1.50 - 7.00 K/mcL LAB HEMETOLOGY METHOD 05/21/2025 4:35 PM EDT [facility] Lymphocytes Absolute 1.82 1.00 - 5.00 K/mcL LAB HEMETOLOGY METHOD 05/21/2025 4:[facility] Monocytes Absolute 0.42 0.20 - 1.00 K/mcL LAB HEMETOLOGY METHOD 05/21/2025 4:35 PM EDT [facility] Eosinophils Absolute 0.05 0.00 - 0.50 K/mcL LAB HEMETOLOGY METHOD 05/21/2025 4:35 PM EDT [facility] Basophils Absolute 0.04 0.00 - 0.20 K/mcL LAB HEMETOLOGY METHOD 05/21/2025 4:35 PM [facility] Immature Granulocytes Absolute 0.01 0.00 - 0.03 K/mcL LAB HEMETOLOGY METHOD 05/21/2025 4:35 PM EDT [facility] Blood Venous blood specimen / Unknown Venipuncture / Unknown 05/21/2025 2:41 PM EDT 05/21/2025 2:41 PM EDT us Rhona MCKEON LAB BLOOD ORDERABLES Final Re sult Performing Organization Address [facility] Co de Phone Number [facility] [address] [place] [address], [place] [phone] * (ABNORMAL) B-type natriuretic peptide (05/21/2025 2:41 PM EDT) Only the most recent of3 resultswithin the time period is included. BNP 123(H) <=100 pcg/mL LAB CHEMISTRY METHOD 05/21/2025 5:19 PM EDT [facility] Blood Venous blood specimen / Unknown Venipuncture / Unknown 05/21/2025 2:41 PM EDT 05/21/2025 2:41 PM EDT us Rhona MCKEON LAB BLOOD ORDERABLES Final Re sult Performing Organization Address [facility] de Phone Number [facility] [address] [place] [address], [place] [phone] * Vitamin B12 (05/21/2025 2:41 PM EDT) Vitamin B-12 765 250 - 900 pcg/mL LAB CHEMISTRY METHOD 05/21/2025 7:12 PM EDT [facility] Blood Venous blood specimen / Unknown Venipuncture / Unknown 05/21/2025 2:41 PM EDT 05/21/2025 2:41 PM EDT us Rhona MCKEON LAB BLOOD ORDERABLES Final Re sult Performing Organization Address [facility]/ZIP Co de Phone Number [facility] [address] [place] [address], [place] [phone] * (ABNORMAL) Comprehensive metabolic panel (05/21/2025 2:41 PM EDT) Only the most recent of2 resultswithin the time period is included. Sodium 141 133 - 145 mmol/L LAB CHEMISTRY METHOD 05/21/2025 7:12 PM [facility] Potassium 3.1(L) 3.5 - 5.5 mmol/L LAB CHEMISTRY METHOD 05/21/2025 7:12 PM [facility] Chloride 111(H) 96 - 110 mmol/L LAB CHEMISTRY METHOD 05/21/2025 7:12 PM [facility] CO2 24 21 - 32 mmol/L LAB CHEMISTRY METHOD 05/21/2025 7:12 PM [facility] Anion Gap 6 3 - 11 LAB CHEMISTRY METHOD 05/21/2025 7:12 PM [facility] Glucose 84 70 - 100 mg/dL LAB CHEMISTRY METHOD 05/21/2025 7:12 PM [facility] BUN 20 5 - 25 mg/dL LAB CHEMISTRY METHOD 05/21/2025 7:12 PM [facility] Creatinine 0.60 0.50 - 1.10 mg/dL LAB CHEMISTRY METHOD 05/21/2025 7:12 PM [facility] eGFR 104 >=60 mL/min/1. 73m2 LAB CHEMISTRY METHOD 05/21/2025 7:12 PM [facility] Comment:Calculation based on the Chronic Kidney Disease Epidemiology Collaboration (CKD-EPI) equation refit without adjustment for race. BUN/Creatinine Ratio 33.3 LAB CHEMISTRY METHOD 05/21/2025 7:12 PM [facility] Calcium 8.0(L) 8.5 - 10.5 mg/dL LAB CHEMISTRY METHOD 05/21/2025 7:12 PM [facility] AST (SGOT) 33 10 - 42 unit/L LAB CHEMISTRY METHOD 05/21/2025 7:12 PM EDT [facility] ALT (SGPT) 43 10 - 60 unit/L LAB CHEMISTRY METHOD 05/21/2025 7:12 PM EDT [facility] Alkaline Phosphatase 145(H) 42 - 121 unit/L LAB CHEMISTRY METHOD 05/21/2025 7:12 PM EDT [facility] Total Protein 6.2 6.0 - 8.0 g/dL LAB CHEMISTRY METHOD 05/21/2025 7:12 PM EDT [facility] Albumin 2.7(L) 3.2 - 5.0 g/dL LAB CHEMISTRY METHOD 05/21/2025 7:12 PM EDT [facility] Total Bilirubin 0.3 0.0 - 1.4 mg/dL LAB CHEMISTRY METHOD 05/21/2025 7:12 PM EDT [facility] Blood Venous blood specimen / Unknown Venipuncture / Unknown 05/21/2025 2:41 PM EDT 05/21/2025 2:41 PM EDT Rhona MCKEON LAB BLOOD ORDERABLES Final Re sult [facility] [address] [place] [address], * Vitamin D 25 hydroxy (04/10/2025 3:06 PM EDT) Vit D, 25-Hydroxy 42.7 30.0 - 80.0 ng/mL LAB CHEMISTRY METHOD 04/10/2025 7:14 PM EDT [facility] Blood Venous blood specimen / Unknown Venipuncture / Unknown 04/10/2025 3:06 PM EDT 04/10/2025 3:06 PM EDT Chuck Casillas MD LAB BLOOD ORDERA BLES Final Result [facility] [address] [place] [address], [place] [phone] * (ABNORMAL) Prealbumin (04/10/2025 3:06 PM EDT) Only the most recent of2 resultswithin the time period is included. Prealbumin 14(L) 18 - 45 mg/dL LAB CHEMISTRY METHOD 04/10/2025 6:53 PM EDT [facility] Blood Venous blood specimen / Unknown Venipuncture / Unknown 04/10/2025 3:06 PM EDT 04/10/2025 3:06 PM EDT Jacques Hawkins MD LAB BLOOD ORDERABLES Final R esult [facility] [address] [place] [address], [place] [phone] * (ABNORMAL) Basic metabolic panel (04/10/2025 3:06 PM EDT) Only the most recent of2 resultswithin the time period is included. [facility] Sodium 142 133 - 145 mmol/L LAB CHEMISTRY METHOD 04/10/2025 6:53 PM EDT [facility] Potassium 3.9 3.5 - 5.5 mmol/L LAB CHEMISTRY METHOD 04/10/2025 6:53 PM EDT [facility] Chloride 112(H) 96 - 110 mmol/L LAB CHEMISTRY METHOD 04/10/2025 6:53 PM EDT [facility] CO2 25 21 - 32 mmol/L LAB CHEMISTRY METHOD 04/10/2025 6:53 PM EDT [facility] Anion Gap 5 3 - 11 LAB CHEMISTRY METHOD 04/10/2025 6:53 PM EDT [facility] Glucose 81 70 - 100 mg/dL LAB CHEMISTRY METHOD 04/10/2025 6:53 PM EDT [facility] BUN 21 5 - 25 mg/dL LAB CHEMISTRY METHOD 04/10/2025 6:53 PM EDT [facility] Creatinine 0.74 0.50 - 1.10 mg/dL LAB CHEMISTRY METHOD 04/10/2025 6:53 PM EDT [facility] eGFR 93 >=60 mL/min/1. 73m2 LAB CHEMISTRY METHOD 04/10/2025 6:53 PM EDT [facility] Comment:Calculation based on the Chronic Kidney Disease Epidemiology Collaboration (CKD-EPI) equation refit without adjustment for race. BUN/Creatinine Ratio 28.4 LAB CHEMISTRY METHOD 04/10/2025 6:53 PM EDT [facility] Calcium 8.1(L) 8.5 - 10.5 mg/dL LAB CHEMISTRY METHOD 04/10/2025 6:53 PM EDT [facility] Blood Venous blood specimen / Unknown Venipuncture / Unknown 04/10/2025 3:06 PM EDT 04/10/2025 3:06 PM EDT Chuck Casillas MD LAB BLOOD ORDERA BLES Final Result [facility] [address] [place] [address], * Vitamin B1 (03/14/2025 2:06 PM EDT) [facility] Vitamin B1 Whole Blood 72 38 - 122 ug/L 03/19/2025 7:16 AM EDT [facility] Comment: This test was developed and the performance characteristics determined by [facility]. It has not been cleared or approved by the FDA. The laboratory is regulated under CLIA as qualified to perform high-complexity testing. This test is used for patient testing purposes. It should not be regarded as investigational or for research. Test performed at [facility], [address] , [place] [address] Briana Pickard MD, PhD - Machine Sand Mixer Blood Venous blood specimen / Unknown Venipuncture / Unknown 03/14/2025 2:06 PM EDT 03/14/2025 2:06 PM EDT Chuck Casillas MD LAB BLOOD ORDERA BLES Final Result Performing Organization Address City/[facility]/ZIP Co de Phone Number [facility] [address] [place] [address] * Vitamin B6 (03/14/2025 2:06 PM EDT) Vitamin B6 (Pyridoxine) Level 10 5 - 50 ug/L 03/18/2025 1:25 PM EDT [facility] Comment: This test was developed and the performance characteristics determined by [facility]. It has not been cleared or approved by the FDA. The laboratory is regulated under CLIA as qualified to perform high-complexity testing. This test is used for patient testing purposes. It should not be regarded as investigational or for research. Test performed at [facility], [address] [place] [address] Briana Pickard MD, PhD - Machine Sand Mixer Blood Venous blood specimen / Unknown Venipuncture / Unknown 03/14/2025 2:06 PM EDT 03/14/2025 2:06 PM EDT Chuck Casillas MD LAB BLOOD ORDERA BLES Final Result Performing Organization Address City/[facility]/ZIP Co de Phone Number [facility] [address] [place] [address] * (ABNORMAL) GGT (03/14/2025 2:06 PM EDT) GGT 79(H) 7 - 64 unit/L LAB CHEMISTRY METHOD 03/14/2025 5:21 PM EDT [facility] Blood Venous blood specimen / Unknown Venipuncture / Unknown 03/14/2025 2:06 PM EDT 03/14/2025 2:06 PM EDT us Rhona MCKEON LAB BLOOD ORDERABLES Final Re sult [facility] [address] [place] [address], [place] [phone] * XR Chest 1 View (03/04/2025 9:46 PM EDT) Anatomical Region Laterality Modality Body Radiographic Lesley ging 03/05/2025 9:30 AM EDT Impressions 03/05/2025 9:31 AM EDT No acute pulmonary disease. No change since 02/21/2025. Code 62049 -------- FINAL REPORT -------- Dictated By: Sachin Lind Dictated Date: 03/05/2025 09:30 ET Assigned Physician: Sachin Lind Reviewed and Electronically Signed By: Sachin Lind Signed Date: 03/05/2025 09:31 ET Workstation ID: [id number] Transcribed By: Self Edit Transcribed Date: 03/05/2025 09:30 ET Narrative 03/05/2025 9:31 AM EDT HISTORY: The patient is a 59-year-old female with peripheral edema. FINDINGS: Sitting AP portable radiograph of the chest demonstrates dextroscoliosis of the thoracic spine as also seen on the prior study performed 02/21/2025. The cardiac silhouette remains borderline enlarged. The mediastinal contour is within normal limits. The lungs and costophrenic angles are clear. Cholecystectomy clips are again noted. Procedure Note Sachin Lind MD - 03/05/2025 HISTORY: The patient is a 59-year-old female with peripheral edema. FINDINGS: Sitting AP portable radiograph of the chest demonstratesdextroscoliosis of the thoracic spine as also seen on the prior studyperformed 02/21/2025. The cardiac silhouette remains borderline enlarged.The mediastinal contour is within normal limits. The lungs andcostophrenic angles are clear. Cholecystectomy clips are again noted. IMPRESSION: No acute pulmonary disease. No change since 02/21/2025. Code 20320 -------- FINAL REPORT -------- Dictated By: Sachin Lind Dictated Date: 03/05/2025 09:30 ET Assigned Physician: Sachin Lind Reviewed and Electronically Signed By: Sachin Lind Signed Date: 03/05/2025 09:31 ET Workstation ID: [id number] Transcribed By: Self Edit Transcribed Date: 03/05/2025 09:30 ET us Kyara Richard MD IMG XR PROCEDURES Final Result * CT Head wo Contrast (03/04/2025 9:09 PM EDT) Anatomical Region Laterality Modality Head and Neck Computed Tomogra phy 03/04/2025 9:55 PM EDT Impressions 03/04/2025 9:55 PM EDT 1. No acute intracranial process. 2. Mild changes most consistent with chronic microvascular ischemic disease. This document has been electronically signed by: Joesph Anderson DO on 03/04/2025 21:55:29 Narrative 03/04/2025 9:55 PM EDT INDICATION: syncope/fall 2 days ago on [address] CT head without contrast Comparison: None provided Findings: No intracranial mass, midline shift, hydrocephalus, or acute hemorrhage. Mild changes most consistent with chronic microvascular ischemic disease. Benign mineralization of the basal ganglia Near-complete opacification of the right sphenoid sinus. The orbits are unremarkable. No skull fracture. Suspect old right medial orbital wall fracture. Procedure Note Joesph Anderson MD - 03/04/2025 INDICATION: syncope/fall 2 days ago on [address] CT head without contrast Comparison: None provided Findings: No intracranial mass, midline shift, hydrocephalus, or acute hemorrhage. Mild changes most consistent with chronic microvascular ischemicdisease. Benign mineralization of the basal ganglia Near-complete opacification of the right sphenoid sinus. The orbits are unremarkable. No skull fracture. Suspect old right medial orbital wall fracture. IMPRESSION: 1. No acute intracranial process. 2. Mild changes most consistent with chronic microvascular ischemic disease. This document has been electronically signed by: Joesph Anderson DO on 03/04/2025 21:55:29 us Kyara Richard MD IMG CT PROCEDURES Final Result * Troponin I High Sensitivity (03/04/2025 8:02 PM EDT) [facility] High Sensitivity Troponin I 5 <=54 ng/L LAB CHEMISTRY METHOD 03/04/2025 8:56 PM EDT [facility] Blood Venous blood specimen / Unknown Venipuncture / Unknown 03/04/2025 8:02 PM EDT 03/04/2025 8:25 PM EDT Narrative [facility] - 03/04/2025 8:56 PM EDT High levels of biotin in samples may falsely decrease hsTroponin values. Use caution when interpreting hsTroponin results in patients taking biotin who exhibit renal impairment (eGFR <60) or in patients taking more than 20 mg/day of biotin. us Kyara Richard MD LAB BLOOD ORDERABLES Final Resul t [facility] [address] [place] [address], * (ABNORMAL) CBC (03/04/2025 8:02 PM EDT) [facility] WBC 5.3 4.8 - 10.8 K/mcL LAB HEMETOLOGY METHOD 03/04/2025 8:34 PM EDT [facility] RBC 3.10(L) 3.80 - 4.80 M/mcL LAB HEMETOLOGY METHOD 03/04/2025 8:34 PM EDT [facility] Hemoglobin 8.3(L) 11.5 - 16.0 g/dL LAB HEMETOLOGY METHOD 03/04/2025 8:34 PM EDT [facility] Hematocrit 27.0(L) 35.0 - 47.0 % LAB HEMETOLOGY METHOD 03/04/2025 8:34 PM EDT [facility] MCV 86.5 79.0 - 98.0 FL LAB HEMETOLOGY METHOD 03/04/2025 8:34 PM EDT [facility] MCH 26.6(L) 27.0 - 32.0 pcg LAB HEMETOLOGY METHOD 03/04/2025 8:34 PM EDT [facility] MCHC 30.7(L) 32.0 - 37.0 g/dL LAB HEMETOLOGY METHOD 03/04/2025 8:34 PM EDT [facility] RDW 18.9(H) 11.0 - 15.0 % LAB HEMETOLOGY METHOD 03/04/2025 8:34 PM EDT [facility] Platelets 169 130 - 400 K/mcL LAB HEMETOLOGY METHOD 03/04/2025 8:34 PM EDT [facility] MPV 11.7(H) 7.0 - 11.0 FL LAB HEMETOLOGY METHOD 03/04/2025 8:34 PM EDT [facility] NRBC 0.0 <1.0 % LAB HEMETOLOGY METHOD 03/04/2025 8:34 PM EDT [facility] NRBC Absolute 0.00 <0.10 K/mcL LAB HEMETOLOGY METHOD 03/04/2025 8:34 PM EDT [facility] Blood Venous blood specimen / Unknown Venipuncture / Unknown 03/04/2025 8:02 PM EDT 03/04/2025 8:25 PM EDT us Kyara Richard MD LAB BLOOD ORDERABLES Final Resul t [facility] [address] [place] [address], * 12-Lead ECG (03/04/2025 7:59 PM EDT) Ventricular Rate ECG 69 BPM GEMUSE Atrial Rate 69 BPM GEMUSE P-R Interval 150 ms GEMUSE QRS Duration 88 ms GEMUSE Q-T Interval 416 ms GEMUSE QTc 445 ms GEMUSE P Wave Acton 70 degrees GEMUSE R Acton -19 degrees GEMUSE T Acton 12 degrees GEMUSE ECG Interpretation Normal sinus rhythm Minimal voltage criteria for LVH, may be normal variant ( R in aVL ) Poor R wave progression Abnormal ECG When compared with ECG of 29-JAN-2025 07:59, No significant change was found Confirmed by Rafael BALL JAMES ([id number]) on 03/05/2025 6:33:05 PM GEMUSE 03/04/2025 7:59 PM EDT 03/05/2025 6:33 PM EDT Kyara Richard MD ECG ORDERABLES Final Result GEMUSE * Lipid panel (02/28/2024) LDL/HDL Ratio 2 0 - 4 Triglycerides 64 0 - 150 mg/dL Cholesterol 170 0 - 200 mg/dL HDL 109 >=40 mg/dL LDL Cholesterol 49 0 - 100 mg/dL Blood Venous blood specimen / Unknown Historical Provider LAB BLOOD ORDERABLES Msi l Result * Depression Screening (09/18/2023) Depression Screening Abstracted Historical Provider HEALTH MAINTENANCE Final Result * SCREENING MAMMOGRAPHY BI 2-VIEW BREAST INC CAD (02/18/2022 2:08 PM EDT) Anatomical Region Laterality Modality Radiographic Lesley ging 02/15/2022 11:3 0 AM EDT Narrative 02/21/2022 10:28 AM EDT This is a summary report. The complete report is available in the patient's medical record. If you cannot access the medical record, please contact the sending organization for a detailed fax or copy. Exam: Screening mammogram Findings: Digital bilateral full-field screening mammography is performed with tomosynthesis and interpreted with the aid of computer-aided detection. Comparison is made with 05/18/2018. Breast parenchyma is composed of scattered fibroglandular densities. No new suspicious mass, architectural distortion, or suspicious calcifications. Impression: No mammographic evidence of malignancy. BI-RADS 1 - negative Procedure Note Jyothi Keith MD - 07/19/2022 This is a summary report. The complete report is available in thepatient's medical record. If you cannot access the medical record, pleasecontact the sending organization for a detailed fax or copy. Exam: Screening mammogram Findings: Digital bilateral full-field screening mammography is performedwith tomosynthesis and interpreted with the aid of computer-aideddetection. Comparison is made with 05/18/2018. Breast parenchyma is composed of scattered fibroglandular densities. Nonew suspicious mass, architectural distortion, or suspiciouscalcifications. Impression: No mammographic evidence of malignancy. BI-RADS 1 - negative Osei MCKEON IMG XR PROCEDURES Final R esult * Colonoscopy (05/12/2020) Colonoscopy Abstracted, No interpretation Anatomical Region Laterality Modality Other [facility] Provider HEALTH MAINTENANCE Final Result * HIV Screening (11/11/2008) [facility] HIV Screening Abstracted Result [facility] Provider HEALTH MAINTENANCE Final Result * Hepatitis C Screening (11/11/2008) Pathologist [facility] Hepatitis C Screening Abstracted [facility] Provider HEALTH MAINTENANCE Final Result from Last 3 Months or Most Recently Relevant to Health Maintenance Additional Health Concerns Infection Onset Date Last Indicated Enteropathogenic E. 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 Do not modify or discontinue any currently active code status orders. * Full Code - Default Date Activated Date Inactivated Comments 01/24/2025 5:38 AM 02/01/2025 9:26 PM This is order is used when code status has not been discussed with the patient, or code status is otherwise unknown/unconfirmed To update the patient's code status, place a code status order. Do not modify or discontinue any currently active code status orders. * Full Code - Default Date Activated Date Inactivated Comments 12/26/2024 1:14 AM 12/31/2024 7:49 PM This is order is used when code status has not been discussed with the patient, or code status is otherwise unknown/unconfirmed To update the patient's code status, place a code status order. Do not modify or discontinue any currently active code status orders. 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
--- OUTSIDE RECORDS SUMMARY | 2025-05-30 13:55 | XMS_ITS | Encounter Summary ---
Author Organization [facility] [place] [address] Care Team Providers Care Hvac Service Tech Name Role Phone Chuck Casillas MD Primary Care Pr ovider Reason for Visit * Reason Onset Date Comments Fitting for DME 05/23/2025 Encounter Details Date Type Department Care Team (Late st Contact Info) Description 05/23/2025 Telephone Adult Medicine [address] [phone] Rhona Chris PA [address] [place] [id number] Social History Tobacco Use Types Packs/Day Years [...] for your loved ones. For example, child psychiatrist or elderly care for an older adult? [...] in this encounter Progress Notes * Nolberto Dunn MA - 05/27/2025 2:13 PM EDTAddended by: NOLBERTO DUNN on: 05/27/2025 02:13 PM Modules accepted: Orders * Nolberto Dunn MA - 05/27/2025 2:13 PM EDT Orders and notes faxed to [facility] * MIKE Jones - 05/27/2025 11:55 AM EDT See 05/15 patient message encounter * MIKE Jones - 05/23/2025 12:00 PM EDT Patient requesting prescription for Ensure History of hypoalbuminemia documented in this encounter Plan of Treatment Upcoming Encounters Date Type Department Care Team (Late st Contact Info) Description 06/02/2025 8:00 AM EST Telemedicine Bariatric Surgery - [place] [address] [facility] [address] [place] [phone] Josefina Ryan, RD [address] [facility] [address] [place] [phone] 06/04/2025 2:00 PM EST Office Visit Adult [address] [phone] Rhona Chris PA [address] [place] [address] 06/17/2025 1:30 PM EST Office Visit Adult Medicine [address] [phone] Rhona Chris PA [address] [place] [address] 06/19/2025 1:30 PM EST Ancillary Procedure [facility] [address] [facility] [address] [place] [address] 06/25/2025 1:20 PM EST Office Visit Gastroenterology - [address] [facility] [address] [facility] [address] [place] [phone] Karlie Kim, JEREMY [address] [place] [phone] 07/09/2025 1:00 PM EST Consult Vascular Surgery - [place] [address] [facility] [address] [place] [phone] Camille Mcgill PA [address] [place] [phone] 08/14/2025 2:00 PM EST Office Visit Adult Medicine [place] [address] [place], [place] [phone] Chuck Casillas MD [address] [place], [place] 10/10/2025 1:10 PM EDT Office Visit [facility] - [facility] [address] [place] [address] Viola Gonzalez NP [address] [place] [address] Dr [address] [place] [address] documented as of this encounter Visit Diagnoses Diagnosis Hypoalbuminemia- Primary Other disorders of plasma protein metabolism documented in this encounter Orders General Supply Count Last Ordered Date First Or dered Date ENTERAL NUTRITION EQUIPMENT 1 05/27/2025 documented in this encounter Additional Health Concerns Infection Onset Date Last Indicated Resolved Time Enteropathogenic E. coli (EPEC) 02/23/2025 5 Assessment Noted Time PHQ-9 Depression Total Score: 11 025 10:06 AM EDT documented as of this encounter Care Teams Hvac Service Tech Relationship Specialty Start Date End Date Chuck Casillas MD [address] [facility] [place], [place] PCP - General Internal Medicine 02/18/22 documented as of this encounter
== END 2025-05-30 14:30 | disposition home or self-care (01) ==
LOC: HO.HSMS 12:48
PROVIDERS: PCP Internal Medicine; Visit Provider Nurse Practitioner Family
DX: G43.109 Migraine with aura, not intractable, without status migrainosus (principal); G93.2 Benign intracranial hypertension; D35.2 Benign neoplasm of pituitary gland; E22.9 Hyperfunction of pituitary gland, unspecified; G47.33 Obstructive sleep apnea (adult) (pediatric); G47.9 Sleep disorder, unspecified; G47.19 Other hypersomnia; R06.83 Snoring
CPT/HCPCS: 99214

== ENCOUNTER → 2025-05-30 12:48 | Outpatient (BNVA) | payer OTHER, SELFPAY | PROVIDERS: PCP Internal Medicine; Visit Provider Nurse Practitioner Family | DX: G43.109 Migraine with aura, not intractable, without status migrainosus (principal); G93.2 Benign intracranial hypertension; D35.2 Benign neoplasm of pituitary gland; E22.9 Hyperfunction of pituitary gland, unspecified; G47.33 Obstructive sleep apnea (adult) (pediatric); G47.9 Sleep disorder, unspecified; G47.19 Other hypersomnia; R06.83 Snoring | CPT/HCPCS: 99212 ==